=== PATIENT | female | born 1970 | race Caucasian/White ===

== ENCOUNTER → 2020-10-12 12:44 | Outpatient (BNVA) | payer MEDICAID, SELFPAY | PROVIDERS: PCP Family Medicine; Visit Provider Physician Assistant | DX: E66.01 Morbid (severe) obesity due to excess calories (principal); I47.1 Supraventricular tachycardia; E78.5 Hyperlipidemia, unspecified; F32.9 Major depressive disorder, single episode, unspecified; K44.9 Diaphragmatic hernia without obstruction or gangrene; K21.9 Gastro-esophageal reflux disease without esophagitis; I10 Essential (primary) hypertension; E11.40 Type 2 diabetes mellitus with diabetic neuropathy, unspecified; M19.90 Unspecified osteoarthritis, unspecified site; Z86.711 Personal history of pulmonary embolism | CPT/HCPCS: 99202 ==

== ENCOUNTER 2022-03-19 10:28 | Emergency (ER) | payer OTHER, SELFPAY ==
[2022-03-19 11:01] VITALS: BP 177/97; PULSE 87; RESP 19; TEMP 36.6; O2SAT 98; BMI 38.2
[2022-03-19 11:24] LABS: MANUAL DIFF FLAG NO
[2022-03-19 11:25] LABS: Basophils Percent Auto 0.6 % (0-2); Eosinophils Absolute Auto 0.2 X10*3/uL (0.0-0.4); Eosinophils Percent Auto 3.7 % (0-4); Hematocrit 44.6 % (37.0-47.0); Hemoglobin 15.6 g/dl (12.0-16.0); Imm Gran Abs Auto 0.04 X10*3/uL (0.00-0.03); Imm Gran Pct Auto 0.8 % (0.0-0.4); Lymphocytes Absolute Auto 0.9 X10*3/uL (1.2-4.9); Lymphocytes Percent Auto 17.6 % (20-40); Mean Corpuscular Hemoglobin 31.5 pg (27.0-33.0); Mean Corpuscular Volume 89.9 fL (80.0-98.0); Mean Platelet Volume 10.3 fL (9.4-12.3); Monocytes Absolute Auto 0.4 X10*3/uL (0.1-1.2); Monocytes Percent Auto 7.3 % (2-11); Neutrophils Absolute Auto 3.4 x10*3/uL (2.0-8.3); Platelet Count 145 X10*3/uL (160-400); Red Blood Count 4.96 X10*6/uL (4.20-5.50); Red Cell Distribution Width 12.3 % (11.0-16.0); White Blood Count 4.9 X10*3/uL (4.8-10.8)
[2022-03-19 11:34] LABS: INTERNATIONAL NORM RATIO 1.2 (0.9-1.1); Prothrombin Time 13.3 SEC (9.9-13.0)
[2022-03-19 11:48] LABS: Appearance Urine HAZY; Color Urine YELLOW; Glucose Urine UA >=1000 MG/DL (NEG); Leukocyte Esterase Urine NEG (NEG); Nitrite Urine NEG (NEG); PH 5.5 (5.0-8.0); Specific Gravity - Urine 1.025 (1.005-1.025); UACC Culture Trigger NO; Urine Blood TRACE (NEG); Urine Ketones 5 MG/DL (NEG); Urine Protein 1+ MG/DL (NEG-TRACE)
[2022-03-19 11:51] LABS: UPreg QC Valid YES; Urine Pregnancy NEGATIVE (NEGATIVE)
[2022-03-19 11:54] LABS: Alanine Aminotransferase 73 U/L (0-31); Albumin Level 4.1 g/dL (3.5-5.0); Alkaline Phosphatase 124 U/L (39-117); Anion Gap 15 (12-20); Aspartate Amino Transferase 81 U/L (5-31); Bilirubin Direct 0.3 mg/dL (0.0-0.5); Blood Urea Nitrogen 19 mg/dL (9-16); Calcium 9.5 mg/dL (8.4-10.2); Carbon Dioxide 27 mmol/L (22-29); Chloride 97 mmol/L (96-108); Estimated Glomerular Filt Rate > 60; Glucose Random 370 mg/dL (60-115); Lipase 45 U/L (8-78); Potassium 4.8 mmol/L (3.3-5.1); Sodium 134 mmol/L (135-145); Total Protein 7.2 g/dL (6.5-8.0)
[2022-03-19 11:55] LABS: Squamous Epithelial Cell Urine 1+ /LPF
[2022-03-19 11:56] LABS: Bacteria Urine 1+ /LPF
--- NOTE | 2022-03-19 14:46 | ED_ITS ---
HPI - General Adult General Chief complaint: General Medical Stated complaint: head pressure chris horse Time Seen by Provider: 03/19/22 14:46 Source: patient Mode of arrival: ambulatory Limitations: no limitations History of Present Illness HPI narrative: 51 y/o female with history of poorly controlled DM with neuropathy, GERD, SVT, HLD, hiatial hernia, DVT on Eliquis, obesity, osteoarthritis who presents to the ER with multiple complaints. She reports waking up at 4am with a Chris horse in her right calf. She called out of work and almost got fired. She reports daily headaches for the last few weeks, increased stress at home. She is nauseated frequently but does not vomit. She admits to increased depression. She does not take her Lantus but takes her oral DM meds. She does not check her sugar. She states her neuropathy is worsening. She reports new onset of headaches almost daily for the last month. History of migraines. She denies weakness or tingling. She has numbness in her bilateral lower legs and feet. She feels like the skin is burning. She has a new PCP and sees them in May. MD complaint: leg cramps, headaches, lightheadedness Onset (ago): week(s) Location: head and lower extremity Radiation: non-radiation Severity: moderate Quality: burning and aching Pain Consistency: intermittent Relieving factors: none Exacerbating factors: none Associated symptoms: loss of appetite and nausea/vomiting Treatments prior to arrival: none Related Data Home Medications Medication Instructions Recorded Confirmed apixaban 5 mg tablet (Eliquis) 5 mg PO BID 10/12/20 10/12/20 atorvastatin 20 mg tablet 20 mg PO DAILY 10/12/20 10/12/20 cetirizine 10 mg tablet (All Day 10 mg PO DAILY PRN 10/12/20 10/12/20 Allergy (cetirizine)) diclofenac sodium 1 % topical gel 2 g topical QID 10/12/20 10/12/20 (Arthritis Pain (diclofenac)) fluoxetine 40 mg capsule 40 mg PO DAILY 10/12/20 10/12/20 gabapentin 300 mg capsule 300 mg PO DAILY 10/12/20 10/12/20 glipizide 10 mg tablet 10 mg PO DAILY 10/12/20 10/12/20 insulin glargine 100 unit/mL (3 10 unit subcut BID 10/12/20 10/12/20 mL) subcutaneous pen (Lantus Solostar U-100 Insulin) losartan 100 mg tablet 100 mg PO DAILY 10/12/20 10/12/20 magnesium oxide 400 mg PO DAILY 10/12/20 10/12/20 ffwrsfdg-hsn-oorru acid 0.4 1 tab PO DAILY 10/12/20 10/12/20 mg-lycopene 300 mcg-lutein 250 mcg tablet (Centrum Silver) omeprazole 20 mg capsule,delayed 20 mg PO DAILY 10/12/20 10/12/20 release semaglutide (Ozempic) 0.25 mg subcut QWEEK 10/12/20 10/12/20 trazodone 100 mg tablet 100 mg PO DAILY 10/12/20 10/12/20 Previous Rx's Medication Instructions Recorded qpsizyqhvc-lzmoctbljkcvp-lwhsrnyb 1 cap PO Q8H PRN headache #10 caps 03/19/22 50 mg-300 mg-40 mg capsule (Fioricet) metoclopramide HCl 10 mg tablet 10 mg PO Q8H PRN nausea and 03/19/22 (Reglan) vomiting #10 tabs Allergies Allergy/AdvReac Type Severity Reaction Status Date / Time Pt states no food/medication Allergy Unknown Anaphylaxis Uncoded 10/12/20 12:56 a Review of Systems Review of Systems: Constitutional: No Fever, No Chills ENT/Mouth: No sore throat, No Rhinorrhea, No Swallowing Difficulty Eyes: No Eye Pain, No Swelling, No Redness Cardiovascular: No Chest Pain, No SOB, No Orthopnea, No Edema Respiratory: No Cough, No Sputum, No Wheezing, No dyspnea Gastrointestinal: + Nausea, No Vomiting, No Diarrhea, No abdominal Pain, No H ematochezia, No Melena Genitourinary: No Dysuria, No Urinary Frequency, No Hematuria Musculoskeletal: No joint pain, + Myalgias Skin: No Skin Lesions, No rash Neuro: No Weakness, + Numbness, No Dizziness, + Headache Psych: + Anxiety/Panic, + Depression, No SI Heme/Lymph: No Bruising, No Lymphadenopathy Endocrine: No Polyuria, No Polydipsia [facility] Past Medical History Medical History (Updated 03/19/22 @ 16:31 by TYLER Ayon) History of pulmonary embolus (PE) Surgical History (Updated 10/12/20 @ 14:09 by Erin Lazaro PA-C) H/O cardiac radiofrequency ablation Hx of hysterectomy Family History Family History (Updated 10/12/20 @ 13:01 by Swapnil Nguyen Ta) Mother No problems noted. Father No problems noted. Sister No problems noted. Daughter No problems noted. Social History Social History (Updated 10/12/20 @ 13:02 by Swapnil Nguyen Ta) Alcohol intake: current Alcohol intake frequency: does not drink Smoked in Last 30 Days: No Use of substances other than those prescribed or required for medical reasons: No Advance Directives: No Advance Directives Information Provided: No Patient : No Physical Exam ED Vital Signs: Vital Signs - 24 hr 03/19/22 11:01 03/19/22 15:12 Temperature 98 F 98.7 F Pulse Rate 87 89 Respiratory Rate 19 18 Blood Pressure 177/97 H 153/79 H Pulse Oximetry 98 97 Oxygen Delivery Method Room Air Room Air BMI result Body Mass Index 38.2 Appearance: Alert. Oriented X3. No acute distress. Anxious, tearful Eyes: Pupils equal, round and reactive to light. ENT: Pharynx normal. Neck: Normal inspection. Neck supple. CVS: Normal heart rate and rhythm. Pulses normal. Respiratory: No respiratory distress. Breath sounds normal. Abdomen: Obese, Soft and nontender. +BS x4 Skin: Skin warm and dry. Normal skin color. Normal skin turgor. No rashes. Extremities: No lower extremity edema. No calf tenderness. Neuro: Oriented X 3. No motor deficit. No sensory deficit. Course Course Course Narrative: 51 yo female with history of poorly controlled DM, depression, SVT, DVT on eliquis who presents to the ER with multiple chronic complaints, including diarrhea x years, lightheadedness x months in the setting of insulin noncompliance and worsening depression. Glucose 370, no evidence of DKA. She also reported LE cramping today. Lytes are stable. Had long discussion at the bedside about her medical problems. She expressed understanding and acknowledged that these should be followed by her PCP but she does not have an appointment until May. She admits her depression is worsening. Not suicidal. She states I know what I have to do, I just need to do it. She has support of her daughter who she lives with. She was given a list of local therapists and counselors in the area, as her worsening depression is contributing to her worsening chronic medical conditions. She is grateful. At this time patient is stable for d/c home with plan to change her diet, start taking her insulin and follow up with PCP Medical Decision Making Lab Data Result diagrams: 03/19/22 11:17 03/19/22 11:17 Labs: Lab Results 03/19/22 03/19/22 03/19/22 Range/Units 11:17 11:17 11:17 WBC 4.9 (4.8-10.8) X10*3/uL RBC 4.96 (4.20-5.50) X10*6/uL Hgb 15.6 (12.0-16.0) g/dl Hct 44.6 (37.0-47.0) % MCV 89.9 (80.0-98.0) fL MCH 31.5 (27.0-33.0) pg MCHC 35.0 (31.0-35.0) g/dl RDW 12.3 (11.0-16.0) % Plt Count 145 L (160-400) X10*3/uL MPV 10.3 (9.4-12.3) fL Immature Gran % (Auto) 0.8 H (0.0-0.4) % Neut % (Auto) 70.0 (45-73) % Lymph % (Auto) 17.6 L (20-40) % Ross % (Auto) 7.3 (2-11) % Eos % (Auto) 3.7 (0-4) % Baso % (Auto) 0.6 (0-2) % Lymph # (Auto) 0.9 L (1.2-4.9) X10*3/uL Ross # (Auto) 0.4 (0.1-1.2) X10*3/uL Eos # (Auto) 0.2 (0.0-0.4) X10*3/uL Baso # (Auto) 0.0 (0.0-0.2) X10*3/uL Abs Immat Gran (auto) 0.04 H (0.00-0.03) X10*3/uL Absolute Neuts (auto) 3.4 (2.0-8.3) x10*3/uL Absolute Nucleated RBC 0.000 (0.0-0.012) X10*3/uL Nucleated RBC % (auto) 0.0 (0.0-0.2) /100WBC PT 13.3 H (9.9-13.0) SEC INR 1.2 H (0.9-1.1) Sodium 134 L (135-145) mmol/L Potassium 4.8 (3.3-5.1) mmol/L Chloride 97 (96-108) mmol/L Carbon Dioxide 27 (22-29) mmol/L Anion Gap 15 (12-20) BUN 19 H (9-16) mg/dL Creatinine 0.80 (0.5-1.4) mg/dL Estim Creat Clear Calc 95.0 Estimated GFR > 60 POC Glucose (60-115) mg/dL Random Glucose 370 H* (60-115) mg/dL Calcium 9.5 (8.4-10.2) mg/dL Magnesium 1.7 (1.6-2.6) mg/dL Total Bilirubin 1.0 (0.0-1.0) mg/dL Direct Bilirubin 0.3 (0.0-0.5) mg/dL AST 81 H (5-31) U/L ALT 73 H (0-31) U/L Alkaline Phosphatase 124 H (39-117) U/L Total Protein 7.2 (6.5-8.0) g/dL Albumin 4.1 (3.5-5.0) g/dL Lipase 45 (8-78) U/L Urine Color Urine Appearance Urine pH (5.0-8.0) Ur Specific [place] (1.005-1.025) Urine Protein (NEG-TRACE) MG/DL Urine Glucose (UA) (NEG) MG/DL Urine Ketones (NEG) MG/DL Urine Blood (NEG) Urine Nitrite (NEG) Ur Leukocyte Esterase (NEG) Urine RBC (0) /HPF Urine WBC (0-4) /HPF Ur Squamous Epith Cells /LPF Urine Bacteria /LPF Urine Test (NEGATIVE) 03/19/22 03/19/22 03/19/22 Range/Units 11:24 11:24 15:16 WBC (4.8-10.8) X10*3/uL RBC (4.20-5.50) X10*6/uL Hgb (12.0-16.0) g/dl Hct (37.0-47.0) % MCV (80.0-98.0) fL MCH (27.0-33.0) pg MCHC (31.0-35.0) g/dl RDW (11.0-16.0) % Plt Count (160-400) X10*3/uL MPV (9.4-12.3) fL Immature Gran % (Auto) (0.0-0.4) % Neut % (Auto) (45-73) % Lymph % (Auto) (20-40) % Ross % (Auto) (2-11) % Eos % (Auto) (0-4) % Baso % (Auto) (0-2) % Lymph # (Auto) (1.2-4.9) X10*3/uL Ross # (Auto) (0.1-1.2) X10*3/uL Eos # (Auto) (0.0-0.4) X10*3/uL Baso # (Auto) (0.0-0.2) X10*3/uL Abs Immat Gran (auto) (0.00-0.03) X10*3/uL Absolute Neuts (auto) (2.0-8.3) x10*3/uL Absolute Nucleated RBC (0.0-0.012) X10*3/uL Nucleated RBC % (auto) (0.0-0.2) /100WBC PT (9.9-13.0) SEC INR (0.9-1.1) Sodium (135-145) mmol/L Potassium (3.3-5.1) mmol/L Chloride (96-108) mmol/L Carbon Dioxide (22-29) mmol/L Anion Gap (12-20) BUN (9-16) mg/dL Creatinine (0.5-1.4) mg/dL Estim Creat Clear Calc Estimated GFR POC Glucose 359 H* (60-115) mg/dL Random Glucose (60-115) mg/dL Calcium (8.4-10.2) mg/dL Magnesium (1.6-2.6) mg/dL Total Bilirubin (0.0-1.0) mg/dL Direct Bilirubin (0.0-0.5) mg/dL AST (5-31) U/L ALT (0-31) U/L Alkaline Phosphatase (39-117) U/L Total Protein (6.5-8.0) g/dL Albumin (3.5-5.0) g/dL Lipase (8-78) U/L Urine Color YELLOW Urine Appearance HAZY Urine pH 5.5 (5.0-8.0) Ur Specific [place] 1.025 (1.005-1.025) Urine Protein 1+ H (NEG-TRACE) MG/DL Urine Glucose (UA) >=1000 H (NEG) MG/DL Urine Ketones 5 (NEG) MG/DL Urine Blood TRACE (NEG) Urine Nitrite NEG (NEG) Ur Leukocyte Esterase NEG (NEG) Urine RBC 1-4 (0) /HPF Urine WBC 1-4 (0-4) /HPF Ur Squamous Epith Cells 1+ /LPF Urine Bacteria 1+ /LPF Urine Test NEGATIVE (NEGATIVE) 03/19/22 Range/Units 16:31 WBC (4.8-10.8) X10*3/uL RBC (4.20-5.50) X10*6/uL Hgb (12.0-16.0) g/dl Hct (37.0-47.0) % MCV (80.0-98.0) fL MCH (27.0-33.0) pg MCHC (31.0-35.0) g/dl RDW (11.0-16.0) % Plt Count (160-400) X10*3/uL MPV (9.4-12.3) fL Immature Gran % (Auto) (0.0-0.4) % Neut % (Auto) (45-73) % Lymph % (Auto) (20-40) % Ross % (Auto) (2-11) % Eos % (Auto) (0-4) % Baso % (Auto) (0-2) % Lymph # (Auto) (1.2-4.9) X10*3/uL Ross # (Auto) (0.1-1.2) X10*3/uL Eos # (Auto) (0.0-0.4) X10*3/uL Baso # (Auto) (0.0-0.2) X10*3/uL Abs Immat Gran (auto) (0.00-0.03) X10*3/uL Absolute Neuts (auto) (2.0-8.3) x10*3/uL Absolute Nucleated RBC (0.0-0.012) X10*3/uL Nucleated RBC % (auto) (0.0-0.2) /100WBC PT (9.9-13.0) SEC INR (0.9-1.1) Sodium (135-145) mmol/L Potassium (3.3-5.1) mmol/L Chloride (96-108) mmol/L Carbon Dioxide (22-29) mmol/L Anion Gap (12-20) BUN (9-16) mg/dL Creatinine (0.5-1.4) mg/dL Estim Creat Clear Calc Estimated GFR POC Glucose 288 H (60-115) mg/dL Random Glucose (60-115) mg/dL Calcium (8.4-10.2) mg/dL Magnesium (1.6-2.6) mg/dL Total Bilirubin (0.0-1.0) mg/dL Direct Bilirubin (0.0-0.5) mg/dL AST (5-31) U/L ALT (0-31) U/L Alkaline Phosphatase (39-117) U/L Total Protein (6.5-8.0) g/dL Albumin (3.5-5.0) g/dL Lipase (8-78) U/L Urine Color Urine Appearance Urine pH (5.0-8.0) Ur Specific [place] (1.005-1.025) Urine Protein (NEG-TRACE) MG/DL Urine Glucose (UA) (NEG) MG/DL Urine Ketones (NEG) MG/DL Urine Blood (NEG) Urine Nitrite (NEG) Ur Leukocyte Esterase (NEG) Urine RBC (0) /HPF Urine WBC (0-4) /HPF Ur Squamous Epith Cells /LPF Urine Bacteria /LPF Urine Test (NEGATIVE) Critical Care Time Critical Care Time Critical Care Time: No Discharge Plan Discharge Clinical Impression: Depression, Diabetes mellitus, Generalized headaches Patient Disposition: Home, Self-Care Instructions: General Headache (ED), Diabetes and Nutrition (ED) Additional Instructions: It is important that you get your diabetes under better control. Monitor your carb and sugar intake Start your Lantus as directed and check your sugars 3-4 times per day, before meals and at bedtime. Take the prescribed medication as needed for headaches. Make sure you are drinking plenty of water Take the prescribed medication as needed for nausea. As your sugars improve your nausea and headaches should improve. Follow up with your PCP. Follow up with a therapist as soon as sathya mathew Prescriptions: New kpuupwghxo-trgrckvyfrrqz-avmt [Fioricet] 50-300-40 mg capsule 1 cap PO Q8H PRN (Reason: headache) Qty: 10 0RF metoclopramide HCl [Reglan] 10 mg tablet 10 mg PO Q8H PRN (Reason: nausea and vomiting) Qty: 10 0RF No Action atorvastatin 20 mg tablet 20 mg PO DAILY Centrum Silver 0.4-300-250 mg-mcg-mcg tablet 1 tab PO DAILY cetirizine [All Day Allergy (cetirizine)] 10 mg tablet 10 mg PO DAILY PRN diclofenac sodium [Arthritis Pain (diclofenac)] 1 % gel 2 g topical QID Rx Instructions: apply to single elbow, wrist or hand; for hand includes palm/fingers/back of hand Eliquis 5 mg tablet 5 mg PO BID fluoxetine 40 mg capsule 40 mg PO DAILY gabapentin 300 mg capsule 300 mg PO DAILY glipizide 10 mg tablet 10 mg PO DAILY Lantus Solostar U-100 Insulin 100 unit/mL (3 mL) insulin pen 10 unit subcut BID losartan 100 mg tablet 100 mg PO DAILY magnesium oxide 400 mg magnesium capsule 400 mg PO DAILY omeprazole 20 mg capsule,delayed release(DR/EC) 20 mg PO DAILY Ozempic 0.25 mg or 0.5 mg(2 mg/1.5 mL) pen injector 0.25 mg subcut QWEEK trazodone 100 mg tablet 100 mg PO DAILY Stand Alone Forms: Work/School Release
[2022-03-19 15:12] VITALS: BP 153/79; PULSE 89; RESP 18; TEMP 37.1; O2SAT 97
[2022-03-19 15:20] LABS: Glucose, Whole Blood 359 mg/dL (60-115)
[2022-03-19] MEDS: Butalb/Acetamin/Caff 50/325/40 TABLET 1 TAB PO (15:21)
[2022-03-19] MEDS: Insulin Lispro 100 UNIT/ML 3 ML VIAL 10 UNIT SUBCUT (15:21)
[2022-03-19 15:51] LABS: Magnesium 1.7 mg/dL (1.6-2.6)
[2022-03-19 16:38] LABS: Glucose, Whole Blood 288 mg/dL (60-115)
== END 2022-03-19 16:58 | disposition home or self-care (01) ==
PROVIDERS: Physician Assistant; Emergency Provider Emergency Medicine Emergency Medical Services; PCP Internal Medicine
DX: G44.89 Other headache syndrome (principal); F32.A Depression, unspecified; E11.40 Type 2 diabetes mellitus with diabetic neuropathy, unspecified; Z86.718 Personal history of other venous thrombosis and embolism; Z79.01 Long term (current) use of anticoagulants; Z91.14 Patient's other noncompliance with medication regimen
CPT/HCPCS: 36415; 80048; 80076; 81001; 81025; 82947; 83690; 83735; 85025; 85610; 99283; 99284

== ENCOUNTER 2022-05-15 15:07 | Inpatient (IN) | payer OTHER, SELFPAY ==
[2022-05-15] VITALS (8 sets, daily range): BP systolic 83–130; BP diastolic 37–69; PULSE 76–93; RESP 12–21; TEMP 36.6; O2SAT 92–96; BMI 34.7
--- NOTE | 2022-05-15 | ECG_ITS ---
Test Reason : REPEAT Blood Pressure : / mmHG Vent. Rate : 084 BPM Atrial Rate : 084 BPM P-R Int : 166 ms QRS Dur : 092 ms QT Int : 450 ms P-R-T Axes : 061 -24 015 degrees QTc Int : 531 ms Normal sinus rhythm Prolonged QT Abnormal ECG When compared with ECG of 15-MAY-2022 15:40, Borderline criteria for Anterior infarct are no longer Present Borderline criteria for Anterolateral infarct are no longer Present Referred By: Basim Jensen Electronically Signed By:EDWIN ALEXANDER
--- NOTE | 2022-05-15 15:31 | ECG_ITS ---
Test Reason : chest pain Blood Pressure : / mmHG Vent. Rate : 077 BPM Atrial Rate : 077 BPM P-R Int : 160 ms QRS Dur : 084 ms QT Int : 510 ms P-R-T Axes : 048 -22 035 degrees QTc Int : 577 ms Normal sinus rhythm Minimal voltage criteria for LVH, may be normal variant ( R in aVL ) Possible Anterolateral infarct , age undetermined Prolonged QT Abnormal ECG No previous ECGs available Referred By: Basim Jensen Electronically Signed By:EDWIN ALEXANDER
--- NOTE | 2022-05-15 15:40 | ED_ITS ---
HPI - Overdose General Chief Complaint: Overdose Stated Complaint: OVERDOSE WITH PILLS Time Seen by Provider: 05/15/22 15:30 Source: patient Mode of arrival: EMS Limitations: no limitations and altered mental status History of Present Illness HPI Narrative: this is a 51 years old of female brought in by the ambulance after taking a on multi-drug overdose, unknown how many pills, she has access to trazodone, meto prolol, acetaminophen melatonin. Apparently she had a fight with her mother she left the house she was found stumbling in the street police was called and then an ambulance was called, she arrived lethargic but arousable MD complaint: intentional overdose Onset (ago): hour(s) (1) Intent: unknown Associated symptoms: depression Related Data Home Medications Medication Instructions Recorded Confirmed apixaban 5 mg tablet (Eliquis) 5 mg PO BID 10/12/20 05/15/22 cetirizine 10 mg tablet (All Day 10 mg PO DAILY PRN Allergy Symptoms 10/12/20 05/15/22 Allergy (cetirizine)) insulin glargine 100 unit/mL (3 52 unit subcut DAILY 10/12/20 05/15/22 mL) subcutaneous pen (Lantus Solostar U-100 Insulin) dulaglutide 0.75 mg/0.5 mL 0.5 ml subcut QWEEK 05/15/22 05/15/22 subcutaneous pen injector (Trulicity) gabapentin 300 mg capsule 2 cap PO TID 05/15/22 05/15/22 glipizide 5 mg tablet, extended 1 tab PO DAILY 05/15/22 05/15/22 release 24 hr hydroxyzine HCl 50 mg tablet 1 tab PO TID PRN Anxiety 05/15/22 05/15/22 insulin lispro 100 unit/mL 5 unit subcut DAILY@1700 05/15/22 05/15/22 subcutaneous solution metoprolol tartrate 50 mg tablet 1 tab PO BID 05/15/22 05/15/22 trazodone 100 mg tablet 2 tab PO QPM 05/15/22 05/15/22 Allergies Allergy/AdvReac Type Severity Reaction Status Date / Time Pt states no food/medication Allergy Unknown Anaphylaxis Uncoded 10/12/20 12:56 a Review of Systems Review of Systems: Yes Unobtainable due to mental condition PMFSH Past Medical History Source: unable to obtain Medical History History of pulmonary embolus (PE) Surgical History H/O cardiac radiofrequency ablation Hx of hysterectomy Family History Family History Mother No problems noted. Father No problems noted. Sister No problems noted. Daughter No problems noted. Social History Social History Alcohol intake: unknown Patient Tobacco Use Status: Tobacco use Unknown Use of substances other than those prescribed or required for medical reasons: Unknown Advance Directives: No Advance Directives Information Provided: No Patient : No Physical Exam Vital Signs: Vital Signs: Last Vital Signs Temp 98 F 05/15/22 15:45 Pulse 80 05/15/22 19:33 Resp 12 05/15/22 19:33 BP 130/69 05/15/22 19:33 Pulse Ox 96 05/15/22 19:33 O2 Del Method 05/15/22 19:33 Oxygen Flow Rate 6 05/15/22 15:45 BMI result Body Mass Index 34.7 Const: Other: lethargic but arousable, she has a gag reflex General: well developed Nutritional Appearance: well nourished Limitations: altered mental status HEENT: Head: Yes normal to inspection General nose exam: Normal external nose present Face and sinus: Yes normal facial exam Mouth: Normal oral and palatal mucosa present Neck: Neck: Yes full ROM Thyroid: Thyroid normal Chest: Chest palpation & inspection: normal inspection of the chest Resp: Effort & Inspection: normal respiratory effort Auscultation: clear to auscultation bilaterally Cardio: Jugular venous distension: no JVD Rate: regular rate GI: Inspection: Yes normal to inspection Palpation (GI): Soft to palpation, not firm, nontender and no guarding Skin: General skin exam: no rashes or lesions noted, elasticity normal and turgor normal Lesions: no lesions Rashes: no rashes Neuro: Other: she is obtunded but arousable Course Reevaluation(s) Reevaluation #1: Awake and alert at this time maintaining airway well normotensive Reevaluation #2: still lethargic but easily arousable, it is unclear many pills she took ;she has access to Tylenol,seroquel,b-blochers,neurontin, apixabam it is very pricila sonable to admit the pt for OBS, she is not medically cleared,she was placed on section 12 by me. I spoke with hospitalist Dr Andrade Poison control called by RN Continue to maintain good airway and good BP will continue cardiac monitoring and supportive care MDM - Overdose Lab Data Result diagrams: 05/15/22 15:39 05/15/22 15:39 Labs: Lab Results 05/15/22 05/15/22 05/15/22 Range/Units 15:31 15:39 15:39 WBC 3.8 L (4.8-10.8) X10*3/uL RBC 4.81 (4.20-5.50) X10*6/uL Hgb 15.1 (12.0-16.0) g/dl Hct 42.8 (37.0-47.0) % MCV 89.0 (80.0-98.0) fL MCH 31.4 (27.0-33.0) pg MCHC 35.3 H (31.0-35.0) g/dl RDW 12.4 (11.0-16.0) % Plt Count 109 L (160-400) X10*3/uL MPV 10.8 (9.4-12.3) fL Immature Gran % (Auto) 0.8 H (0.0-0.4) % Neut % (Auto) 59.8 (45-73) % Lymph % (Auto) 27.2 (20-40) % [place] % (Auto) 8.6 (2-11) % Eos % (Auto) 2.6 (0-4) % Baso % (Auto) 1.0 (0-2) % Lymph # (Auto) 1.0 L (1.2-4.9) X10*3/uL [place] # (Auto) 0.3 (0.1-1.2) X10*3/uL Eos # (Auto) 0.1 (0.0-0.4) X10*3/uL Baso # (Auto) 0.0 (0.0-0.2) X10*3/uL Abs Immat Gran (auto) 0.03 (0.00-0.03) X10*3/uL Absolute Neuts (auto) 2.3 (2.0-8.3) x10*3/uL Absolute Nucleated RBC 0.000 (0.0-0.012) X10*3/uL Nucleated RBC % (auto) 0.0 (0.0-0.2) /100WBC APTT (26.0-36.4) SEC VBG pH (7.32-7.43) VBG pCO2 mmHg VBG pO2 mmHg VBG HCO3 (22-26) mmol/L VBG O2 Saturation % VBG Base Excess mmol/L Sodium 135 (135-145) mmol/L Potassium 4.6 (3.3-5.1) mmol/L Chloride 100 (96-108) mmol/L Carbon Dioxide 19 L (22-29) mmol/L Anion Gap 21 H (12-20) BUN 20 H (9-16) mg/dL Creatinine 1.13 (0.5-1.4) mg/dL Estim Creat Clear Calc 73.3 Estimated GFR 51 POC Glucose 380 H* (60-115) mg/dL Random Glucose 399 H* (60-115) mg/dL Calcium 8.5 D (8.4-10.2) mg/dL Magnesium 1.6 (1.6-2.6) mg/dL Total Bilirubin 0.7 (0.0-1.0) mg/dL AST 92 H (5-31) U/L ALT 71 H (0-31) U/L Alkaline Phosphatase 121 H (39-117) U/L Troponin I High Sens (<3.5-17.0) ng/L B-Natriuretic Peptide (<100) pg/mL Total Protein 7.2 (6.5-8.0) g/dL Albumin 3.8 (3.5-5.0) g/dL Salicylates < 5.0 L (15-30) mg/dL Urine Opiates Screen (Not Detect) Urine Fentanyl Screen (Not Detect) Acetaminophen < 1 (<30) mcg/mL Ur Barbiturates Screen (Not Detect) Ur Phencyclidine Scrn (Not Detect) Ur Amphetamines Screen (Not Detect) U Benzodiazepines Scrn (Not Detect) Urine Cocaine Screen (Not Detect) U Marijuana (THC) Screen (Not Detect) Ethyl Alcohol mg/dL 05/15/22 05/15/22 05/15/22 Range/Units 15:39 15:42 15:47 WBC (4.8-10.8) X10*3/uL RBC (4.20-5.50) X10*6/uL Hgb (12.0-16.0) g/dl Hct (37.0-47.0) % MCV (80.0-98.0) fL MCH (27.0-33.0) pg MCHC (31.0-35.0) g/dl RDW (11.0-16.0) % Plt Count (160-400) X10*3/uL MPV (9.4-12.3) fL Immature Gran % (Auto) (0.0-0.4) % Neut % (Auto) (45-73) % Lymph % (Auto) (20-40) % [place] % (Auto) (2-11) % Eos % (Auto) (0-4) % Baso % (Auto) (0-2) % Lymph # (Auto) (1.2-4.9) X10*3/uL [place] # (Auto) (0.1-1.2) X10*3/uL Eos # (Auto) (0.0-0.4) X10*3/uL Baso # (Auto) (0.0-0.2) X10*3/uL Abs Immat Gran (auto) (0.00-0.03) X10*3/uL Absolute Neuts (auto) (2.0-8.3) x10*3/uL Absolute Nucleated RBC (0.0-0.012) X10*3/uL Nucleated RBC % (auto) (0.0-0.2) /100WBC APTT 34.9 (26.0-36.4) SEC VBG pH 7.37 (7.32-7.43) VBG pCO2 37 mmHg VBG pO2 83 mmHg VBG HCO3 21 L (22-26) mmol/L VBG O2 Saturation 95.0 % VBG Base Excess -2.7 mmol/L Sodium (135-145) mmol/L Potassium (3.3-5.1) mmol/L Chloride (96-108) mmol/L Carbon Dioxide (22-29) mmol/L Anion Gap (12-20) BUN (9-16) mg/dL Creatinine (0.5-1.4) mg/dL Estim Creat Clear Calc Estimated GFR POC Glucose (60-115) mg/dL Random Glucose (60-115) mg/dL Calcium (8.4-10.2) mg/dL Magnesium (1.6-2.6) mg/dL Total Bilirubin (0.0-1.0) mg/dL AST (5-31) U/L ALT (0-31) U/L Alkaline Phosphatase (39-117) U/L Troponin I High Sens < 3.5 (<3.5-17.0) ng/L B-Natriuretic Peptide (<100) pg/mL Total Protein (6.5-8.0) g/dL Albumin (3.5-5.0) g/dL Salicylates (15-30) mg/dL Urine Opiates Screen (Not Detect) Urine Fentanyl Screen (Not Detect) Acetaminophen (<30) mcg/mL Ur Barbiturates Screen (Not Detect) Ur Phencyclidine Scrn (Not Detect) Ur Amphetamines Screen (Not Detect) U Benzodiazepines Scrn (Not Detect) Urine Cocaine Screen (Not Detect) U Marijuana (THC) Screen (Not Detect) Ethyl Alcohol mg/dL 05/15/22 05/15/22 05/15/22 Range/Units 17:06 17:11 18:17 WBC (4.8-10.8) X10*3/uL RBC (4.20-5.50) X10*6/uL Hgb (12.0-16.0) g/dl Hct (37.0-47.0) % MCV (80.0-98.0) fL MCH (27.0-33.0) pg MCHC (31.0-35.0) g/dl RDW (11.0-16.0) % Plt Count (160-400) X10*3/uL MPV (9.4-12.3) fL Immature Gran % (Auto) (0.0-0.4) % Neut % (Auto) (45-73) % Lymph % (Auto) (20-40) % [place] % (Auto) (2-11) % Eos % (Auto) (0-4) % Baso % (Auto) (0-2) % Lymph # (Auto) (1.2-4.9) X10*3/uL [place] # (Auto) (0.1-1.2) X10*3/uL Eos # (Auto) (0.0-0.4) X10*3/uL Baso # (Auto) (0.0-0.2) X10*3/uL Abs Immat Gran (auto) (0.00-0.03) X10*3/uL Absolute Neuts (auto) (2.0-8.3) x10*3/uL Absolute Nucleated RBC (0.0-0.012) X10*3/uL Nucleated RBC % (auto) (0.0-0.2) /100WBC APTT (26.0-36.4) SEC VBG pH (7.32-7.43) VBG pCO2 mmHg VBG pO2 mmHg VBG HCO3 (22-26) mmol/L VBG O2 Saturation % VBG Base Excess mmol/L Sodium (135-145) mmol/L Potassium (3.3-5.1) mmol/L Chloride (96-108) mmol/L Carbon Dioxide (22-29) mmol/L Anion Gap (12-20) BUN (9-16) mg/dL Creatinine (0.5-1.4) mg/dL Estim Creat Clear Calc Estimated GFR POC Glucose 407 H* (60-115) mg/dL Random Glucose (60-115) mg/dL Calcium (8.4-10.2) mg/dL Magnesium (1.6-2.6) mg/dL Total Bilirubin (0.0-1.0) mg/dL AST (5-31) U/L ALT (0-31) U/L Alkaline Phosphatase (39-117) U/L Troponin I High Sens (<3.5-17.0) ng/L B-Natriuretic Peptide 16 (<100) pg/mL Total Protein (6.5-8.0) g/dL Albumin (3.5-5.0) g/dL Salicylates (15-30) mg/dL Urine Opiates Screen Not Detected (Not Detect) Urine Fentanyl Screen POSITIVE H (Not Detect) Acetaminophen (<30) mcg/mL Ur Barbiturates Screen Not Detected (Not Detect) Ur Phencyclidine Scrn Not Detected (Not Detect) Ur Amphetamines Screen POSITIVE H (Not Detect) U Benzodiazepines Scrn Not Detected (Not Detect) Urine Cocaine Screen Not Detected (Not Detect) U Marijuana (THC) Screen Not Detected (Not Detect) Ethyl Alcohol mg/dL 05/15/22 05/15/22 05/15/22 Range/Units 18:17 19:52 19:52 WBC (4.8-10.8) X10*3/uL RBC (4.20-5.50) X10*6/uL Hgb (12.0-16.0) g/dl Hct (37.0-47.0) % MCV (80.0-98.0) fL MCH (27.0-33.0) pg MCHC (31.0-35.0) g/dl RDW (11.0-16.0) % Plt Count (160-400) X10*3/uL MPV (9.4-12.3) fL Immature Gran % (Auto) (0.0-0.4) % Neut % (Auto) (45-73) % Lymph % (Auto) (20-40) % [place] % (Auto) (2-11) % Eos % (Auto) (0-4) % Baso % (Auto) (0-2) % Lymph # (Auto) (1.2-4.9) X10*3/uL [place] # (Auto) (0.1-1.2) X10*3/uL Eos # (Auto) (0.0-0.4) X10*3/uL Baso # (Auto) (0.0-0.2) X10*3/uL Abs Immat Gran (auto) (0.00-0.03) X10*3/uL Absolute Neuts (auto) (2.0-8.3) x10*3/uL Absolute Nucleated RBC (0.0-0.012) X10*3/uL Nucleated RBC % (auto) (0.0-0.2) /100WBC APTT (26.0-36.4) SEC VBG pH (7.32-7.43) VBG pCO2 mmHg VBG pO2 mmHg VBG HCO3 (22-26) mmol/L VBG O2 Saturation % VBG Base Excess mmol/L Sodium (135-145) mmol/L Potassium (3.3-5.1) mmol/L Chloride (96-108) mmol/L Carbon Dioxide (22-29) mmol/L Anion Gap (12-20) BUN (9-16) mg/dL Creatinine (0.5-1.4) mg/dL Estim Creat Clear Calc Estimated GFR POC Glucose (60-115) mg/dL Random Glucose (60-115) mg/dL Calcium (8.4-10.2) mg/dL Magnesium (1.6-2.6) mg/dL Total Bilirubin (0.0-1.0) mg/dL AST (5-31) U/L ALT (0-31) U/L Alkaline Phosphatase (39-117) U/L Troponin I High Sens (<3.5-17.0) ng/L B-Natriuretic Peptide (<100) pg/mL Total Protein (6.5-8.0) g/dL Albumin (3.5-5.0) g/dL Salicylates (15-30) mg/dL Urine Opiates Screen (Not Detect) Urine Fentanyl Screen (Not Detect) Acetaminophen < 1 Cancelled (<30) mcg/mL Ur Barbiturates Screen (Not Detect) Ur Phencyclidine Scrn (Not Detect) Ur Amphetamines Screen (Not Detect) U Benzodiazepines Scrn (Not Detect) Urine Cocaine Screen (Not Detect) U Marijuana (THC) Screen (Not Detect) Ethyl Alcohol < 10 mg/dL ECG Data Pacemaker model: normal sinus rhythm rate [address]-T changes normal intervals Critical Care Time Critical Care Time Critical Care Time: Yes Total Critical Care Time: 60 Attestation: multidrug overdose speaking with EMS/Hospitalist/taking care of the pt Discharge Plan Discharge Clinical Impression: Overdose, Deliberate medication overdose
[2022-05-15 15:44] LABS: MANUAL DIFF FLAG NO
[2022-05-15 15:46] LABS: Eosinophils Absolute Auto 0.1 X10*3/uL (0.0-0.4); Eosinophils Percent Auto 2.6 % (0-4); Hematocrit 42.8 % (37.0-47.0); Hemoglobin 15.1 g/dl (12.0-16.0); Imm Gran Abs Auto 0.03 X10*3/uL (0.00-0.03); Imm Gran Pct Auto 0.8 % (0.0-0.4); Lymphocytes Percent Auto 27.2 % (20-40); Mean Corpuscular HGB Conc 35.3 g/dl (31.0-35.0); Mean Corpuscular Hemoglobin 31.4 pg (27.0-33.0); Mean Platelet Volume 10.8 fL (9.4-12.3); Monocytes Absolute Auto 0.3 X10*3/uL (0.1-1.2); Monocytes Percent Auto 8.6 % (2-11); Neutrophils Absolute Auto 2.3 x10*3/uL (2.0-8.3); Neutrophils Percent Auto 59.8 % (45-73); Platelet Count 109 X10*3/uL (160-400); Red Blood Count 4.81 X10*6/uL (4.20-5.50); Red Cell Distribution Width 12.4 % (11.0-16.0); White Blood Count 3.8 X10*3/uL (4.8-10.8)
[2022-05-15 15:52] LABS: VBG Base Excess -2.7 mmol/L; VBG HCO3 21 mmol/L (22-26); VBG pCO2 37 mmHg; VBG pH 7.37 (7.32-7.43); VBG pO2 83 mmHg
[2022-05-15 15:53] LABS: Venous Blood Gas Refer to POC result
[2022-05-15 15:57] LABS: Partial Thromboplastin Time 34.9 SEC (26.0-36.4)
[2022-05-15 16:09] LABS: Troponin-I High Sensitivity < 3.5 ng/L (<3.5-17.0)
[2022-05-15 16:09] LABS: Acetaminophen LAB < 1 mcg/mL (<30); Salicylate < 5.0 mg/dL (15-30)
[2022-05-15 16:11] LABS: Glucose, Whole Blood 380 mg/dL (60-115)
[2022-05-15 16:11] LABS: Alanine Aminotransferase 71 U/L (0-31); Albumin Level 3.8 g/dL (3.5-5.0); Alkaline Phosphatase 121 U/L (39-117); Anion Gap 21 (12-20); Aspartate Amino Transferase 92 U/L (5-31); Bilirubin Total 0.7 mg/dL (0.0-1.0); Blood Urea Nitrogen 20 mg/dL (9-16); Calcium 8.5 mg/dL (8.4-10.2); Carbon Dioxide 19 mmol/L (22-29); Chloride 100 mmol/L (96-108); Creatinine Clr Calc Pharmacy 73.3; Estimated Glomerular Filt Rate 51; Glucose Random 399 mg/dL (60-115); Potassium 4.6 mmol/L (3.3-5.1); Sodium 135 mmol/L (135-145); Total Protein 7.2 g/dL (6.5-8.0)
[2022-05-15] MEDS: 0.9 % Sodium Chloride 1,000 ML 999 ML IVCONT (16:47)
--- NOTE | 2022-05-15 16:58 | PC.NURSE ---
pt lethargic, did vomit once following arriving to the ER, no pills noticed in [facility]. pt reluctant to answer nursing questions. was able to report that she took melatonin and trazodone
[2022-05-15] MEDS: Insulin Lispro 100 UNIT/ML 3 ML VIAL SUBCUT ×2 (17:12→21:29)
--- NOTE | 2022-05-15 17:15 | PC.NURSE ---
call to poison control [phone]
--- NOTE | 2022-05-15 17:36 | PC.NURSE ---
per poison control - monitor pt blood sugar, draw BNP and ethanol level. Q2 hr EKG for another 4 hours (1740 and 1940 monitor QTC) will call back with further update
[2022-05-15 17:45] LABS: Amphetamine Screen Urine POSITIVE (Not Detect); Barbiturates, Urine Not Detected (Not Detect); Benzodiazepines Screen Urine Not Detected (Not Detect); Cannabinoid Screen Urine Not Detected (Not Detect); Cocaine Screen Urine Not Detected (Not Detect); Fentanyl, urine POSITIVE (Not Detect); Opiate Screen Urine Not Detected (Not Detect); Phencyclidine Screen Urine Not Detected (Not Detect)
--- NOTE | 2022-05-15 17:45 | MHC.CARE ---
Call received by aJmal Orosco from [facility] co response. He reports that pt took unknown amount of a new bottle of gabapentin. This report conflicts with others on what pt took. Information is communicated to both Azul Franklin RN and Dr. Jensen. Pt not yet medically cleared for assessment.
[2022-05-15 18:17] LABS: Glucose, Whole Blood 407 mg/dL (60-115)
[2022-05-15 18:34] LABS: Ethanol < 10 mg/dL
[2022-05-15 18:42] LABS: B Type Natriuretic Peptide 16 pg/mL (<100)
--- NOTE | 2022-05-15 18:43 | PC.NURSE ---
Nereyda (daughter) ok to give information to per pt
--- NOTE | 2022-05-15 19:32 | PC.NURSE ---
report received from Azul GARDNER - vial signs updated. pt cleaned up, sheets changed. resting comfortably, no current complains. A&Ox4. on lunchroom monitor, call yuan within reach. will continue to monitor.
--- NOTE | 2022-05-15 19:40 | ECG_ITS ---
Test Reason : overdose Blood Pressure : / mmHG Vent. Rate : 081 BPM Atrial Rate : 081 BPM P-R Int : 158 ms QRS Dur : 090 ms QT Int : 444 ms P-R-T Axes : 060 -23 016 degrees QTc Int : 515 ms Normal sinus rhythm Low voltage QRS Prolonged QT Abnormal ECG When compared with ECG of 15-MAY-2022 18:04, No significant change was found Referred By: Basim Jensen Electronically Signed By:EDWIN ALEXANDER
--- NOTE | 2022-05-15 20:39 | P.HPHOSP_ITS ---
History of Present Illness Date of Service: 05/15/22 Chief Complaint: suicidal attempt 51-year-old female with past medical history of GERD, HTN, osteoarthritis, diabetes, diabetic neuropathy, depression, HLD, history of SVT, presents to the hospital after ingesting various pills after of having a fight with her wilner pennington. Patient reports that she did not want to hurt herself and she took them after having a fight with her daughter. She took trazodone, hydrocortisone, and melatonin. She reports that she took more than 10 pills. At this time patient denies any suicidal ideation. She denies any headache or change in vision, no chest pain, shortness of breath, no abdominal pain nausea or vomiting, no diarrhea constipation, no urinary symptoms and no lower extremity edema. On arrival to the ED patient hemodynamically stable with hypotension with blood pressure in the 80s over 30s, patient resuscitated with IV fluids with normalization of her blood pressure Labs are significant for WBC count of 3.8, pH of 7.37, bicarb of 21, osmolality of 304, lactic acid of 3.0, magnesium of 1.6, AST of 92, ALT of 71, UA positive for leukocyte Estrace and WBC, UDS positive for fentanyl, amphetamines, estimate of in an salicylate acid negative Initial EKG on arrival showed a QTC of 531, 2nd EKG showed a QTC of 577, patient received magnesium, and will be admitted for further management and evaluation. Review of Systems Review of Systems: Yes all other systems are reviewed and are negative [facility] Medical History (Updated 05/16/22 @ 06:00 by Alicia Andrade MD) Depression Diabetes mellitus Diabetic neuropathy GERD (gastroesophageal reflux disease) Hiatal hernia History of pulmonary embolus (PE) HTN, goal below 130/80 Hyperlipidemia Morbid obesity Osteoarthritis SVT (supraventricular tachycardia) Family History Mother No problems noted. Father No problems noted. Sister No problems noted. Daughter No problems noted. Surgical History H/O cardiac radiofrequency ablation Hx of hysterectomy Social History Alcohol intake: unknown Patient Tobacco Use Status: Tobacco use Unknown Use of substances other than those prescribed or required for medical reasons: Unknown Advance Directives: No Advance Directives Information Provided: No Patient : No Meds Allergies Allergy/AdvReac Type Severity Reaction Status Date / Time Pt states no food/medication Allergy Unknown Anaphylaxis Uncoded 10/12/20 12:56 a Home Medications Medication Instructions Recorded Confirmed Last Taken Type apixaban 5 mg tablet (Eliquis) 5 mg PO BID 10/12/20 05/15/22 Unknown History cetirizine 10 mg tablet (All Day 10 mg PO DAILY PRN Allergy Symptoms 10/12/20 05/15/22 Unknown History Allergy (cetirizine)) insulin glargine 100 unit/mL (3 52 unit subcut DAILY 10/12/20 05/15/22 Unknown History mL) subcutaneous pen (Lantus Solostar U-100 Insulin) dulaglutide 0.75 mg/0.5 mL 0.5 ml subcut QWEEK 05/15/22 05/15/22 Unknown History subcutaneous pen injector (Trulicity) gabapentin 300 mg capsule 2 cap PO TID 05/15/22 05/15/22 Unknown History glipizide 5 mg tablet, extended 1 tab PO DAILY 05/15/22 05/15/22 Unknown History release 24 hr hydroxyzine HCl 50 mg tablet 1 tab PO TID PRN Anxiety 05/15/22 05/15/22 Unknown History insulin lispro 100 unit/mL 5 unit subcut DAILY@1700 05/15/22 05/15/22 Unknown History subcutaneous solution metoprolol tartrate 50 mg tablet 1 tab PO BID 05/15/22 05/15/22 Unknown History trazodone 100 mg tablet 2 tab PO QPM 05/15/22 05/15/22 Unknown History Physical Exam Vital Signs and Narrative: Vital Signs: Last Vital Signs Temp 98 F 05/15/22 15:45 Pulse 80 05/15/22 19:33 Resp 12 05/15/22 19:33 BP 130/69 05/15/22 19:33 Pulse Ox 96 05/15/22 19:33 O2 Del Method 05/15/22 19:33 Oxygen Flow Rate 6 05/15/22 15:45 BMI result Body Mass Index 34.7 Const: Other: Slightly somnolent but arousable General: cooperative and no acute distress Orientation/consciousness: patient oriented x3 Eyes: General: appearance normal, both eyes and all related structures Resp: Effort & Inspection: normal respiratory effort Auscultation: clear to auscultation bilaterally Cardio: Rate: regular rate Rhythm: regular rhythm GI: Palpation (GI): Soft to palpation Auscultation: normal bowel sounds Skin: General skin exam: no rashes or lesions noted Neuro: General: patient oriented x3 Cognition (Neuro): normal cognition Extrem: General: Yes normal to inspection and Yes no pedal edema Results Labs CBC and Chem 7: 05/15/22 15:39 05/15/22 15:39 Labs: Laboratory Results - last 24 hr 05/15/22 05/15/22 05/15/22 15:31 15:39 15:39 MCV 89.0 MCH 31.4 MCHC 35.3 H RDW 12.4 Plt Count 109 L MPV 10.8 Immature Gran % (Auto) 0.8 H Neut % (Auto) 59.8 Lymph % (Auto) 27.2 [place] % (Auto) 8.6 Eos % (Auto) 2.6 Baso % (Auto) 1.0 Lymph # (Auto) 1.0 L [place] # (Auto) 0.3 Eos # (Auto) 0.1 Baso # (Auto) 0.0 Abs Immat Gran (auto) 0.03 Absolute Neuts (auto) 2.3 Absolute Nucleated RBC 0.000 Nucleated RBC % (auto) 0.0 APTT VBG pH VBG pCO2 VBG pO2 VBG HCO3 VBG O2 Saturation VBG Base Excess Anion Gap 21 H Estim Creat Clear Calc 73.3 Estimated GFR 51 POC Glucose 380 H* Random Glucose 399 H* Calcium 8.5 D Total Bilirubin 0.7 AST 92 H ALT 71 H Alkaline Phosphatase 121 H B-Natriuretic Peptide Total Protein 7.2 Albumin 3.8 Salicylates < 5.0 L Urine Opiates Screen Urine Fentanyl Screen Acetaminophen < 1 Ur Barbiturates Screen Ur Phencyclidine Scrn Ur Amphetamines Screen U Benzodiazepines Scrn Urine Cocaine Screen U Marijuana (THC) Screen Ethyl Alcohol 05/15/22 05/15/22 05/15/22 15:39 15:47 17:06 MCV MCH MCHC RDW Plt Count MPV Immature Gran % (Auto) Neut % (Auto) Lymph % (Auto) [place] % (Auto) Eos % (Auto) Baso % (Auto) Lymph # (Auto) [place] # (Auto) Eos # (Auto) Baso # (Auto) Abs Immat Gran (auto) Absolute Neuts (auto) Absolute Nucleated RBC Nucleated RBC % (auto) APTT 34.9 VBG pH 7.37 VBG pCO2 37 VBG pO2 83 VBG HCO3 21 L VBG O2 Saturation 95.0 VBG Base Excess -2.7 Anion Gap Estim Creat Clear Calc Estimated GFR POC Glucose 407 H* Random Glucose Calcium Total Bilirubin AST ALT Alkaline Phosphatase B-Natriuretic Peptide Total Protein Albumin Salicylates Urine Opiates Screen Urine Fentanyl Screen Acetaminophen Ur Barbiturates Screen Ur Phencyclidine Scrn Ur Amphetamines Screen U Benzodiazepines Scrn Urine Cocaine Screen U Marijuana (THC) Screen Ethyl Alcohol 05/15/22 05/15/22 05/15/22 17:11 18:17 18:17 MCV MCH MCHC RDW Plt Count MPV Immature Gran % (Auto) Neut % (Auto) Lymph % (Auto) [place] % (Auto) Eos % (Auto) Baso % (Auto) Lymph # (Auto) [place] # (Auto) Eos # (Auto) Baso # (Auto) Abs Immat Gran (auto) Absolute Neuts (auto) Absolute Nucleated RBC Nucleated RBC % (auto) APTT VBG pH VBG pCO2 VBG pO2 VBG HCO3 VBG O2 Saturation VBG Base Excess Anion Gap Estim Creat Clear Calc Estimated GFR POC Glucose Random Glucose Calcium Total Bilirubin AST ALT Alkaline Phosphatase B-Natriuretic Peptide 16 Total Protein Albumin Salicylates Urine Opiates Screen Not Detected Urine Fentanyl Screen POSITIVE H Acetaminophen Ur Barbiturates Screen Not Detected Ur Phencyclidine Scrn Not Detected Ur Amphetamines Screen POSITIVE H U Benzodiazepines Scrn Not Detected Urine Cocaine Screen Not Detected U Marijuana (THC) Screen Not Detected Ethyl Alcohol < 10 05/15/22 19:52 MCV MCH MCHC RDW Plt Count MPV Immature Gran % (Auto) Neut % (Auto) Lymph % (Auto) [place] % (Auto) Eos % (Auto) Baso % (Auto) Lymph # (Auto) [place] # (Auto) Eos # (Auto) Baso # (Auto) Abs Immat Gran (auto) Absolute Neuts (auto) Absolute Nucleated RBC Nucleated RBC % (auto) APTT VBG pH VBG pCO2 VBG pO2 VBG HCO3 VBG O2 Saturation VBG Base Excess Anion Gap Estim Creat Clear Calc Estimated GFR POC Glucose Random Glucose Calcium Total Bilirubin AST ALT Alkaline Phosphatase B-Natriuretic Peptide Total Protein Albumin Salicylates Urine Opiates Screen Urine Fentanyl Screen Acetaminophen Cancelled Ur Barbiturates Screen Ur Phencyclidine Scrn Ur Amphetamines Screen U Benzodiazepines Scrn Urine Cocaine Screen U Marijuana (THC) Screen Ethyl Alcohol Assessment and Plan (1) Overdose: Status: Acute (2) Deliberate medication overdose: Status: Acute (3) UTI (urinary tract infection): Status: Acute Plan This is a 51-year-old female with past medical history of DVT, diabetes, hypertension, presents to the hospital with complaints of drug overdose after having a fight with her daughter. Patient reports overdosing on trazodone, melatonin and hydrocortisone. # deliberate drug overdose - although patient denies attempting suicide she did take them after having a fight with her daughter - she has prolonged QTC - magnesium of 1.6 - will optimize magnesium above 2, admit to telemetry - repeat EKG and close monitoring of QT interval - psych consulted - Will hold all sedative home meds # UTI - positive UA - will treat with IV antibiotics - follow cultures # diabetes - continue home insulin - add low-dose sliding-scale insulin - diabetic diet # history of DVT - continue Eliquis # hypertension - stable - continue metoprolol DVT prophylaxis: Eliquis Given patient's overdose, and need for close monitoring patient will be admitted and will require minimum 2 night hospital stay for further management and evaluation Quality Stroke Does the patient have a stroke diagnosis?: No VTE Prior VTE?: Yes VTE Risk Level:: Medical - moderate - high VTE Device Contraindication: Treatment Not Indicated VTE Drug Contraindication: N/A - Med Ordered
[2022-05-15 20:55] LABS: Acetaminophen LAB < 1 mcg/mL (<30)
[2022-05-15 20:57] LABS: Magnesium 1.6 mg/dL (1.6-2.6)
[2022-05-15] MEDS: ondansetron HCL 4 MG/2 ML VIAL IVPUSH (21:21)
[2022-05-15 21:30] LABS: Glucose, Whole Blood 297 mg/dL (60-115)
--- NOTE | 2022-05-15 21:30 | MHC.RECOVSUP ---
? Reason for consult:Overdose o? Current location:ED10? o? Identified substance use concern:? -? Overdose ?? Intervention: o? Harm reduction discussion ? Plan:Suggest Treatment ? Additional information:[facility] spoke with pt about going to treatment and/or completing a referral for a [facility]. PT refused any services and stated it was a mistake.
--- NOTE | 2022-05-15 21:40 | ECG_ITS ---
Test Reason : REPEAT Blood Pressure : / mmHG Vent. Rate : 084 BPM Atrial Rate : 084 BPM P-R Int : 158 ms QRS Dur : 090 ms QT Int : 436 ms P-R-T Axes : 057 -19 017 degrees QTc Int : 515 ms Normal sinus rhythm Prolonged QT Abnormal ECG When compared with ECG of 15-MAY-2022 19:37, No significant change was found Referred By: Basim Jensen Electronically Signed By:EDWIN ALEXANDER
--- NOTE | 2022-05-15 22:06 | PHA.MEDREC ---
Pharmacy Consult ? Medication Reconciliation Pharmacy has completed the medication reconciliation. SPOKE WITH PT
[2022-05-15] MEDS: Magnesium Sulfate/H2O 2 GM/50 ML PIGGYBACK IV (22:35)
[2022-05-15] MEDS: 0.9 % Sodium Chloride 1,000 ML 100 ML IVCONT (22:37)
[2022-05-15] MEDS: Insulin Glargine,Hum.rec.anlog 100 UNIT/ML 10 ML VIAL 52 UNIT SUBCUT (22:38)
[2022-05-15 22:43] LABS: Appearance Urine CLOUDY; Color Urine YELLOW; Glucose Urine UA 500 MG/DL (NEG); Leukocyte Esterase Urine 1+ (NEG); Nitrite Urine NEG (NEG); PH 5.5 (5.0-8.0); Specific Gravity - Urine >= 1.030 (1.005-1.025); Urine Blood TRACE (NEG); Urine Ketones NEG (NEG); Urine Protein 2+ MG/DL (NEG-TRACE)
[2022-05-15 23:04] LABS: WBC Urine 30-49 /HPF (0-4)
[2022-05-15 23:05] LABS: Bacteria Urine 2+ /LPF; Squamous Epithelial Cell Urine 1+ /LPF
[2022-05-16] VITALS (12 sets, daily range): BP systolic 99–131; BP diastolic 49–72; PULSE 79–85; RESP 14–20; TEMP 36.8–37.1; O2SAT 93–98
--- NOTE | 2022-05-16 | ECG_ITS ---
Test Reason : prolong QT Blood Pressure : / mmHG Vent. Rate : 079 BPM Atrial Rate : 079 BPM P-R Int : 166 ms QRS Dur : 092 ms QT Int : 444 ms P-R-T Axes : 052 -20 004 degrees QTc Int : 509 ms Normal sinus rhythm Prolonged QT Abnormal ECG When compared with ECG of 16-MAY-2022 05:55, No significant change was found Referred By: Natty Rai Electronically Signed By:EDWIN ALEXANDER
--- NOTE | 2022-05-16 | ECG_ITS ---
Test Reason : REPEAT Blood Pressure : / mmHG Vent. Rate : 084 BPM Atrial Rate : 084 BPM P-R Int : 172 ms QRS Dur : 092 ms QT Int : 442 ms P-R-T Axes : 057 -17 014 degrees QTc Int : 522 ms Normal sinus rhythm Low voltage QRS Prolonged QT Abnormal ECG When compared with ECG of 16-MAY-2022 00:49, No significant change was found Referred By: Alicia Andrade Electronically Signed By:EDWIN ALEXANDER
[2022-05-16 00:09] LABS: Osmolality, Serum 304 mosm/kg (281-305)
--- NOTE | 2022-05-16 00:25 | PC.NURSE ---
pt sleeping comfortably on stretcher. cpap in place during sleep. respirations even and unlabored. [place] on patient. call kwabena chamberlain . 1:[address] will continue to monitor closely.
[2022-05-16 01:32] LABS: Reflex Lactate? Lactic Acid Added
--- NOTE | 2022-05-16 01:46 | PC.NURSE ---
pt refusing lactic acid blood draw
[2022-05-16 02:17] LABS: COVID-19 Test Negative (Negative)
[2022-05-16] MEDS: cefTRIAXone sodium 1 GM in 0.9 % Sodium Chloride 50 ML IV (06:30)
[2022-05-16 06:49] LABS: MANUAL DIFF FLAG NO
[2022-05-16 07:03] LABS: Basophils Percent Auto 0.7 % (0-2); Eosinophils Absolute Auto 0.1 X10*3/uL (0.0-0.4); Eosinophils Percent Auto 1.2 % (0-4); Hematocrit 40.3 % (37.0-47.0); Hemoglobin 13.9 g/dl (12.0-16.0); Imm Gran Abs Auto 0.03 X10*3/uL (0.00-0.03); Imm Gran Pct Auto 0.7 % (0.0-0.4); Lymphocytes Absolute Auto 0.9 X10*3/uL (1.2-4.9); Lymphocytes Percent Auto 20.9 % (20-40); Mean Corpuscular HGB Conc 34.5 g/dl (31.0-35.0); Mean Corpuscular Hemoglobin 31.4 pg (27.0-33.0); Mean Platelet Volume 10.6 fL (9.4-12.3); Monocytes Absolute Auto 0.3 X10*3/uL (0.1-1.2); Monocytes Percent Auto 7.4 % (2-11); Neutrophils Percent Auto 69.1 % (45-73); Platelet Count 105 X10*3/uL (160-400); Red Blood Count 4.43 X10*6/uL (4.20-5.50); Red Cell Distribution Width 12.7 % (11.0-16.0); White Blood Count 4.3 X10*3/uL (4.8-10.8)
[2022-05-16 07:10] LABS: Lactic Acid 2.1 mmol/L (0.5-2.0)
[2022-05-16 07:35] LABS: Anion Gap 15 (12-20); Blood Urea Nitrogen 16 mg/dL (9-16); Calcium 8.1 mg/dL (8.4-10.2); Carbon Dioxide 23 mmol/L (22-29); Chloride 106 mmol/L (96-108); Creatinine Clr Calc Pharmacy 106.3; Estimated Glomerular Filt Rate > 60; Glucose Random 224 mg/dL (60-115); Potassium 4.6 mmol/L (3.3-5.1); Sodium 139 mmol/L (135-145)
[2022-05-16 07:37] LABS: Glucose, Whole Blood 186 mg/dL (60-115)
[2022-05-16] MEDS: Metoprolol Tartrate 50 MG TABLET PO ×2 (08:04→20:08)
[2022-05-16] MEDS: Apixaban 5 MG TABLET PO ×2 (08:04→20:08)
[2022-05-16] MEDS: Insulin Glargine,Hum.rec.anlog 100 UNIT/ML 10 ML VIAL 52 UNIT SUBCUT (08:05)
[2022-05-16] MEDS: Insulin Lispro 100 UNIT/ML 3 ML VIAL SUBCUT ×4 (08:06→23:56)
--- NOTE | 2022-05-16 08:18 | PC.NURSE ---
did pt AM care, pt was incontinent of feces, cleaned pt and provided new linens. Brought pt her breakfast tray , pt states she is not hungry. pt wants to go back to sleep, pt is resting comfortably.
[2022-05-16 08:49] LABS: Reflex Lactate? Lactic Acid Added
--- NOTE | 2022-05-16 10:43 | MHC.CARE ---
Please consult CARE Team when Pt is medically cleared
--- NOTE | 2022-05-16 11:04 | PC.NURSE ---
Permission given to speak to her daughter regarding her hospital stay.
[2022-05-16] MEDS: Loperamide HCl 2 MG CAPSULE PO (12:55)
[2022-05-16] MEDS: Promethazine HCL 25 MG TABLET PO (12:55)
--- NOTE | 2022-05-16 13:16 | P.PNIM_ITS ---
Subjective Subjective Date of Service: 05/16/22 Interval History: nausea + diarrhea on home CPAP Review of Systems Review of Systems: Yes all other systems are reviewed and are negative Physical Exam Vital Signs: Vital Signs: Last Vital Signs Temp 98.2 F 05/16/22 13:03 Pulse 79 05/16/22 13:03 Resp 18 05/16/22 13:03 BP 131/72 05/16/22 13:03 Pulse Ox 95 05/16/22 13:03 O2 Del Method 05/16/22 13:03 Oxygen Flow Rate 6 05/15/22 15:45 BMI result Body Mass Index 34.7 Gen: in no acute distress HEENT: sclera anicteric, moist mucus membranes Neck: supple Lungs: clear to auscultation bilaterally Heart: regular rate and rhythm, no murmurs Abd: soft, non-tender, non-distended Ext: no edema Skin: warm/well-perfused Neuro: alert and oriented x3, no focal findings Psych: appropriate affect Objective Data Active Medications Apixaban (Apixaban 5 Mg Tablet) 5 mg PO BID [facility] Last Admin: 05/16/22 08:04 Dose: 5 mg Documented By: ALTHEA Dextrose (Dextrose 50 % 25 Gm/50 Ml Syringe) 25 gm IVPUSH Q15M PRN; Protocol PRN Reason: per Hypoglycemia Standing Ord. Glucose (Glucose Gel 15 Gm Gel..Gram.) 15 gm PO Q15M PRN; Protocol PRN Reason: per Hypoglycemia Standing Ord. Sodium Chloride (Ns) 1,000 mls @ 100 mls/hr IVCONT .Q10H [facility] Last Admin: 05/16/22 06:25 Dose: Not Given Documented By: DANNY Non-Admin Reason: IV Running Ceftriaxone Sodium 1 gm/ (Sodium Chloride) 50 mls @ 100 mls/hr IV Q24H [facility] Last Admin: 05/16/22 06:30 Dose: 100 mls/hr Documented By: DANNY Insulin Glargine (Insulin Glargine,Hum.Rec.Anlog 100 Unit/Ml 10 Ml Vial) 52 unit SUBCUT DAILY [facility] Last Admin: 05/16/22 08:05 Dose: 52 unit Documented By: ALTHEA Insulin Human Lispro (Insulin Lispro 100 Unit/Ml 3 Ml Vial) 0 unit SUBCUT QIDACHS [facility]; Protocol Last Admin: 05/16/22 08:06 Dose: 2 unit Documented By: ALTHEA Insulin Human Lispro (Insulin Lispro 100 Unit/Ml 3 Ml Vial) 5 unit SUBCUT DAILY@1700 [facility] Loperamide HCl (Loperamide Hcl 2 Mg Capsule) 2 mg PO Q4H PRN PRN Reason: diarrhea Last Admin: 05/16/22 12:55 Dose: 2 mg Documented By: ALTHEA Metoprolol Tartrate (Metoprolol Tartrate 50 Mg Tablet) 50 mg PO BID [facility]; Protocol Last Admin: 05/16/22 08:04 Dose: 50 mg Documented By: ALTHEA Promethazine HCl (Promethazine Hcl 25 Mg Tablet) 25 mg PO Q4H PRN PRN Reason: nausea/vomiting Last Admin: 05/16/22 12:55 Dose: 25 mg Documented By: ALTHEA Labs CBC & Chem 7: 05/16/22 06:28 05/16/22 06:28 Labs: Laboratory Results - last 24 hr 05/15/22 05/15/22 05/15/22 15:31 15:39 15:39 MCV 89.0 MCH 31.4 MCHC 35.3 H RDW 12.4 Plt Count 109 L MPV 10.8 Immature Gran % (Auto) 0.8 H Neut % (Auto) 59.8 Lymph % (Auto) 27.2 [place] % (Auto) 8.6 Eos % (Auto) 2.6 Baso % (Auto) 1.0 Lymph # (Auto) 1.0 L [place] # (Auto) 0.3 Eos # (Auto) 0.1 Baso # (Auto) 0.0 Abs Immat Gran (auto) 0.03 Absolute Neuts (auto) 2.3 Absolute Nucleated RBC 0.000 Nucleated RBC % (auto) 0.0 APTT VBG pH VBG pCO2 VBG pO2 VBG HCO3 VBG O2 Saturation VBG Base Excess Anion Gap 21 H Estim Creat Clear Calc 73.3 Estimated GFR 51 POC Glucose 380 H* Random Glucose 399 H* Osmolality Lactic Acid Calcium 8.5 D Magnesium 1.6 Total Bilirubin 0.7 AST 92 H ALT 71 H Alkaline Phosphatase 121 H B-Natriuretic Peptide Total Protein 7.2 Albumin 3.8 Urine Color Urine Appearance Urine pH Ur Specific [place] Urine Protein Urine Glucose (UA) Urine Ketones Urine Blood Urine Nitrite Ur Leukocyte Esterase Urine RBC Urine WBC Ur Squamous Epith Cells Urine Bacteria Salicylates < 5.0 L Urine Opiates Screen Urine Fentanyl Screen Acetaminophen < 1 Ur Barbiturates Screen Ur Phencyclidine Scrn Ur Amphetamines Screen U Benzodiazepines Scrn Urine Cocaine Screen U Marijuana (THC) Screen Ethyl Alcohol COVID-19 (MARCIA) COVID-19 Clin Com 05/15/22 05/15/22 05/15/22 15:39 15:47 17:06 MCV MCH MCHC RDW Plt Count MPV Immature Gran % (Auto) Neut % (Auto) Lymph % (Auto) [place] % (Auto) Eos % (Auto) Baso % (Auto) Lymph # (Auto) [place] # (Auto) Eos # (Auto) Baso # (Auto) Abs Immat Gran (auto) Absolute Neuts (auto) Absolute Nucleated RBC Nucleated RBC % (auto) APTT 34.9 VBG pH 7.37 VBG pCO2 37 VBG pO2 83 VBG HCO3 21 L VBG O2 Saturation 95.0 VBG Base Excess -2.7 Anion Gap Estim Creat Clear Calc Estimated GFR POC Glucose 407 H* Random Glucose Osmolality Lactic Acid Calcium Magnesium Total Bilirubin AST ALT Alkaline Phosphatase B-Natriuretic Peptide Total Protein Albumin Urine Color Urine Appearance Urine pH Ur Specific [place] Urine Protein Urine Glucose (UA) Urine Ketones Urine Blood Urine Nitrite Ur Leukocyte Esterase Urine RBC Urine WBC Ur Squamous Epith Cells Urine Bacteria Salicylates Urine Opiates Screen Urine Fentanyl Screen Acetaminophen Ur Barbiturates Screen Ur Phencyclidine Scrn Ur Amphetamines Screen U Benzodiazepines Scrn Urine Cocaine Screen U Marijuana (THC) Screen Ethyl Alcohol COVID-19 (MARCIA) COVID-19 [place] Com 05/15/22 05/15/22 05/15/22 17:11 17:11 18:17 MCV MCH MCHC RDW Plt Count MPV Immature Gran % (Auto) Neut % (Auto) Lymph % (Auto) [place] % (Auto) Eos % (Auto) Baso % (Auto) Lymph # (Auto) [place] # (Auto) Eos # (Auto) Baso # (Auto) Abs Immat Gran (auto) Absolute Neuts (auto) Absolute Nucleated RBC Nucleated RBC % (auto) APTT VBG pH VBG pCO2 VBG pO2 VBG HCO3 VBG O2 Saturation VBG Base Excess Anion Gap Estim Creat Clear Calc Estimated GFR POC Glucose Random Glucose Osmolality Lactic Acid Calcium Magnesium Total Bilirubin AST ALT Alkaline Phosphatase B-Natriuretic Peptide 16 Total Protein Albumin Urine Color YELLOW Urine Appearance CLOUDY Urine pH 5.5 Ur Specific [place] >= 1.030 H Urine Protein 2+ H Urine Glucose (UA) 500 H Urine Ketones NEG Urine Blood TRACE Urine Nitrite NEG Ur Leukocyte Esterase 1+ H Urine RBC 5-9 H Urine WBC 30-49 H Ur Squamous Epith Cells 1+ Urine Bacteria 2+ Salicylates Urine Opiates Screen Not Detected Urine Fentanyl Screen POSITIVE H Acetaminophen Ur Barbiturates Screen Not Detected Ur Phencyclidine Scrn Not Detected Ur Amphetamines Screen POSITIVE H U Benzodiazepines Scrn Not Detected Urine Cocaine Screen Not Detected U Marijuana (THC) Screen Not Detected Ethyl Alcohol COVID-19 (MARCIA) COVID-19 [place] Com 05/15/22 05/15/22 05/15/22 18:17 19:52 19:52 MCV MCH MCHC RDW Plt Count MPV Immature Gran % (Auto) Neut % (Auto) Lymph % (Auto) [place] % (Auto) Eos % (Auto) Baso % (Auto) Lymph # (Auto) [place] # (Auto) Eos # (Auto) Baso # (Auto) Abs Immat Gran (auto) Absolute Neuts (auto) Absolute Nucleated RBC Nucleated RBC % (auto) APTT VBG pH VBG pCO2 VBG pO2 VBG HCO3 VBG O2 Saturation VBG Base Excess Anion Gap Estim Creat Clear Calc Estimated GFR POC Glucose Random Glucose Osmolality Lactic Acid Calcium Magnesium Total Bilirubin AST ALT Alkaline Phosphatase B-Natriuretic Peptide Total Protein Albumin Urine Color Urine Appearance Urine pH Ur Specific [place] Urine Protein Urine Glucose (UA) Urine Ketones Urine Blood Urine Nitrite Ur Leukocyte Esterase Urine RBC Urine WBC Ur Squamous Epith Cells Urine Bacteria Salicylates Urine Opiates Screen Urine Fentanyl Screen Acetaminophen < 1 Cancelled Ur Barbiturates Screen Ur Phencyclidine Scrn Ur Amphetamines Screen U Benzodiazepines Scrn Urine Cocaine Screen U Marijuana (THC) Screen Ethyl Alcohol < 10 COVID-19 (MARCIA) COVID-19 [employer] 05/15/22 05/15/22 05/15/22 21:26 23:26 23:26 MCV MCH MCHC RDW Plt Count MPV Immature Gran % (Auto) Neut % (Auto) Lymph % (Auto) [place] % (Auto) Eos % (Auto) Baso % (Auto) Lymph # (Auto) [place] # (Auto) Eos # (Auto) Baso # (Auto) Abs Immat Gran (auto) Absolute Neuts (auto) Absolute Nucleated RBC Nucleated RBC % (auto) APTT VBG pH VBG pCO2 VBG pO2 VBG HCO3 VBG O2 Saturation VBG Base Excess Anion Gap Estim Creat Clear Calc Estimated GFR POC Glucose 297 H Random Glucose Osmolality 304 Lactic Acid 3.0 H* Calcium Magnesium Total Bilirubin AST ALT Alkaline Phosphatase B-Natriuretic Peptide Total Protein Albumin Urine Color Urine Appearance Urine pH Ur Specific [place] Urine Protein Urine Glucose (UA) Urine Ketones Urine Blood Urine Nitrite Ur Leukocyte Esterase Urine RBC Urine WBC Ur Squamous Epith Cells Urine Bacteria Salicylates Urine Opiates Screen Urine Fentanyl Screen Acetaminophen Ur Barbiturates Screen Ur Phencyclidine Scrn Ur Amphetamines Screen U Benzodiazepines Scrn Urine Cocaine Screen U Marijuana (THC) Screen Ethyl Alcohol COVID-19 (MARCIA) COVID-19 [place] Com 05/16/22 05/16/22 05/16/22 01:59 06:28 06:28 MCV 91.0 MCH 31.4 MCHC 34.5 RDW 12.7 Plt Count 105 L MPV 10.6 Immature Gran % (Auto) 0.7 H Neut % (Auto) 69.1 Lymph % (Auto) 20.9 [place] % (Auto) 7.4 Eos % (Auto) 1.2 Baso % (Auto) 0.7 Lymph # (Auto) 0.9 L [place] # (Auto) 0.3 Eos # (Auto) 0.1 Baso # (Auto) 0.0 Abs Immat Gran (auto) 0.03 Absolute Neuts (auto) 3.0 Absolute Nucleated RBC 0.000 Nucleated RBC % (auto) 0.0 APTT VBG pH VBG pCO2 VBG pO2 VBG HCO3 VBG O2 Saturation VBG Base Excess Anion Gap 15 Estim Creat Clear Calc 106.3 Estimated GFR > 60 POC Glucose Random Glucose 224 H Osmolality Lactic Acid Calcium 8.1 L Magnesium Total Bilirubin AST ALT Alkaline Phosphatase B-Natriuretic Peptide Total Protein Albumin Urine Color Urine Appearance Urine pH Ur Specific [place] Urine Protein Urine Glucose (UA) Urine Ketones Urine Blood Urine Nitrite Ur Leukocyte Esterase Urine RBC Urine WBC Ur Squamous Epith Cells Urine Bacteria Salicylates Urine Opiates Screen Urine Fentanyl Screen Acetaminophen Ur Barbiturates Screen Ur Phencyclidine Scrn Ur Amphetamines Screen U Benzodiazepines Scrn Urine Cocaine Screen U Marijuana (THC) Screen Ethyl Alcohol COVID-19 (MARCIA) Negative COVID-19 Clin Com See Note 05/16/22 05/16/22 06:28 07:27 MCV MCH MCHC RDW Plt Count MPV Immature Gran % (Auto) Neut % (Auto) Lymph % (Auto) [place] % (Auto) Eos % (Auto) Baso % (Auto) Lymph # (Auto) [place] # (Auto) Eos # (Auto) Baso # (Auto) Abs Immat Gran (auto) Absolute Neuts (auto) Absolute Nucleated RBC Nucleated RBC % (auto) APTT VBG pH VBG pCO2 VBG pO2 VBG HCO3 VBG O2 Saturation VBG Base Excess Anion Gap Estim Creat Clear Calc Estimated GFR POC Glucose 186 H Random Glucose Osmolality Lactic Acid 2.1 H* Calcium Magnesium Total Bilirubin AST ALT Alkaline Phosphatase B-Natriuretic Peptide Total Protein Albumin Urine Color Urine Appearance Urine pH Ur Specific [place] Urine Protein Urine Glucose (UA) Urine Ketones Urine Blood Urine Nitrite Ur Leukocyte Esterase Urine RBC Urine WBC Ur Squamous Epith Cells Urine Bacteria Salicylates Urine Opiates Screen Urine Fentanyl Screen Acetaminophen Ur Barbiturates Screen Ur Phencyclidine Scrn Ur Amphetamines Screen U Benzodiazepines Scrn Urine Cocaine Screen U Marijuana (THC) Screen Ethyl Alcohol COVID-19 (MARCIA) COVID-19 Clin Com Assessment and Plan (1) Overdose: Status: Acute Plan hospital d#2 51yo F with hx DVT, DM2, HTN, ELISE admitted after intentional overdose on trazodone, melatonin + hydroxyzine during family dispute # intentional overdose # prolonged QTc - supportive care, cardiac monitoring, IV fluids - serial EKG; QTc now improved to 505 ms - sitter, psychiatry/BHN consultation # UTI - ceftriaxone d#2, follow UCx # HTN - metoprolo # DM2 - basal/bolus insulin # VTE ppx - continue apixaban In my clinical judgment, the patient requires continued hospitalization for the following reasons: cardiac monitoring, SI Quality Stroke Does the patient have a stroke diagnosis?: No VTE Prior VTE?: Yes VTE Risk Level:: Medical - moderate - high VTE Device Contraindication: Treatment Not Indicated VTE Drug Contraindication: N/A - Med Ordered
[2022-05-16 13:30] LABS: Glucose, Whole Blood 281 mg/dL (60-115)
--- NOTE | 2022-05-16 15:37 | MHC.CM.PN ---
CM HAS ATTEMPTED TO SEE PT TWICE THROUGHOUT THE DAY, PT SLEEPING WITH HER BIPAP/CPAP ON CM WILL REVISIT
--- NOTE | 2022-05-16 16:47 | P.CNPS_ITS ---
History of Present Illness Chief Complaint: Suicidal attempt by drug ingestion [facility] Medical History (Updated 05/16/22 @ 06:00 by Alicia Andrade MD) Depression Diabetes mellitus Diabetic neuropathy GERD (gastroesophageal reflux disease) Hiatal hernia History of pulmonary embolus (PE) HTN, goal below 130/80 Hyperlipidemia Morbid obesity Osteoarthritis SVT (supraventricular tachycardia) Surgical History H/O cardiac radiofrequency ablation Hx of hysterectomy Diagnostics Vital Signs (24Hr): Vital Signs - 24 hr 05/15/22 17:05 05/15/22 17:05 05/15/22 17:24 Temperature Pulse Rate 92 93 Respiratory Rate 18 18 21 H Blood Pressure 109/54 L 119/58 L Pulse Oximetry 96 93 Oxygen Delivery Method Room Air Room Air 05/15/22 17:57 05/15/22 19:33 05/15/22 22:44 Temperature 97.9 F Pulse Rate 82 80 79 Respiratory Rate 15 12 19 Blood Pressure 106/47 L 130/69 96/45 L Pulse Oximetry 92 96 94 Oxygen Delivery Method Room Air Room Air Room Air 05/15/22 23:19 05/15/22 23:27 05/16/22 00:47 Temperature Pulse Rate 81 83 Respiratory Rate 18 17 16 Blood Pressure 106/57 L 101/49 L Pulse Oximetry 92 93 Oxygen Delivery Method CPAP CPAP 05/16/22 00:48 05/16/22 04:55 05/16/22 05:05 Temperature Pulse Rate 84 Respiratory Rate 18 18 19 Blood Pressure 113/63 Pulse Oximetry 94 Oxygen Delivery Method Room Air 05/16/22 05:40 05/16/22 08:17 05/16/22 08:35 Temperature Pulse Rate 82 85 Respiratory Rate 19 14 19 Blood Pressure 123/67 117/65 Pulse Oximetry 95 95 Oxygen Delivery Method CPAP CPAP 05/16/22 13:03 05/16/22 15:16 05/16/22 16:33 Temperature 98.2 F 98.2 F Pulse Rate 79 80 80 Respiratory Rate 18 16 20 Blood Pressure 131/72 126/63 126/63 Pulse Oximetry 95 96 98 Oxygen Delivery Method Room Air Room Air Room Air BMI result Body Mass Index 34.7 Labs Results: 05/16/22 06:28 05/16/22 06:28 Labs: Laboratory Results - last 48 hr 05/15/22 05/15/22 05/15/22 15:31 15:39 15:39 WBC 3.8 L RBC 4.81 Hgb 15.1 Hct 42.8 MCV 89.0 MCH 31.4 MCHC 35.3 H RDW 12.4 Plt Count 109 L MPV 10.8 Immature Gran % (Auto) 0.8 H Neut % (Auto) 59.8 Lymph % (Auto) 27.2 [place] % (Auto) 8.6 Eos % (Auto) 2.6 Baso % (Auto) 1.0 Lymph # (Auto) 1.0 L [place] # (Auto) 0.3 Eos # (Auto) 0.1 Baso # (Auto) 0.0 Abs Immat Gran (auto) 0.03 Absolute Neuts (auto) 2.3 Absolute Nucleated RBC 0.000 Nucleated RBC % (auto) 0.0 APTT VBG pH VBG pCO2 VBG pO2 VBG HCO3 VBG O2 Saturation VBG Base Excess Sodium 135 Potassium 4.6 Chloride 100 Carbon Dioxide 19 L Anion Gap 21 H BUN 20 H Creatinine 1.13 Estim Creat Clear Calc 73.3 Estimated GFR 51 POC Glucose 380 H* Random Glucose 399 H* Osmolality Lactic Acid Calcium 8.5 D Magnesium 1.6 Total Bilirubin 0.7 AST 92 H ALT 71 H Alkaline Phosphatase 121 H Troponin I High Sens B-Natriuretic Peptide Total Protein 7.2 Albumin 3.8 Urine Color Urine Appearance Urine pH Ur Specific [place] Urine Protein Urine Glucose (UA) Urine Ketones Urine Blood Urine Nitrite Ur Leukocyte Esterase Urine RBC Urine WBC Ur Squamous Epith Cells Urine Bacteria Salicylates < 5.0 L Urine Opiates Screen Urine Fentanyl Screen Acetaminophen < 1 Ur Barbiturates Screen Ur Phencyclidine Scrn Ur Amphetamines Screen U Benzodiazepines Scrn Urine Cocaine Screen U Marijuana (THC) Screen Ethyl Alcohol COVID-19 ([facility]) COVID-19 Clin Com 05/15/22 05/15/22 05/15/22 15:39 15:42 15:47 WBC RBC Hgb Hct MCV MCH MCHC RDW Plt Count MPV Immature Gran % (Auto) Neut % (Auto) Lymph % (Auto) [place] % (Auto) Eos % (Auto) Baso % (Auto) Lymph # (Auto) [place] # (Auto) Eos # (Auto) Baso # (Auto) Abs Immat Gran (auto) Absolute Neuts (auto) Absolute Nucleated RBC Nucleated RBC % (auto) APTT 34.9 VBG pH 7.37 VBG pCO2 37 VBG pO2 83 VBG HCO3 21 L VBG O2 Saturation 95.0 VBG Base Excess -2.7 Sodium Potassium Chloride Carbon Dioxide Anion Gap BUN Creatinine Estim Creat Clear Calc Estimated GFR POC Glucose Random Glucose Osmolality Lactic Acid Calcium Magnesium Total Bilirubin AST ALT Alkaline Phosphatase Troponin I High Sens < 3.5 B-Natriuretic Peptide Total Protein Albumin Urine Color Urine Appearance Urine pH Ur Specific [place] Urine Protein Urine Glucose (UA) Urine Ketones Urine Blood Urine Nitrite Ur Leukocyte Esterase Urine RBC Urine WBC Ur Squamous Epith Cells Urine Bacteria Salicylates Urine Opiates Screen Urine Fentanyl Screen Acetaminophen Ur Barbiturates Screen Ur Phencyclidine Scrn Ur Amphetamines Screen U Benzodiazepines Scrn Urine Cocaine Screen U Marijuana (THC) Screen Ethyl Alcohol COVID-19 ([facility]) COVID-19 [employer] Com 05/15/22 05/15/22 05/15/22 17:06 17:11 17:11 WBC RBC Hgb Hct MCV MCH MCHC RDW Plt Count MPV Immature Gran % (Auto) Neut % (Auto) Lymph % (Auto) [place] % (Auto) Eos % (Auto) Baso % (Auto) Lymph # (Auto) [place] # (Auto) Eos # (Auto) Baso # (Auto) Abs Immat Gran (auto) Absolute Neuts (auto) Absolute Nucleated RBC Nucleated RBC % (auto) APTT VBG pH VBG pCO2 VBG pO2 VBG HCO3 VBG O2 Saturation VBG Base Excess Sodium Potassium Chloride Carbon Dioxide Anion Gap BUN Creatinine Estim Creat Clear Calc Estimated GFR POC Glucose 407 H* Random Glucose Osmolality Lactic Acid Calcium Magnesium Total Bilirubin AST ALT Alkaline Phosphatase Troponin I High Sens B-Natriuretic Peptide Total Protein Albumin Urine Color YELLOW Urine Appearance CLOUDY Urine pH 5.5 Ur Specific [place] >= 1.030 H Urine Protein 2+ H Urine Glucose (UA) 500 H Urine Ketones NEG Urine Blood TRACE Urine Nitrite NEG Ur Leukocyte Esterase 1+ H Urine RBC 5-9 H Urine WBC 30-49 H Ur Squamous Epith Cells 1+ Urine Bacteria 2+ Salicylates Urine Opiates Screen Not Detected Urine Fentanyl Screen POSITIVE H Acetaminophen Ur Barbiturates Screen Not Detected Ur Phencyclidine Scrn Not Detected Ur Amphetamines Screen POSITIVE H U Benzodiazepines Scrn Not Detected Urine Cocaine Screen Not Detected U Marijuana (THC) Screen Not Detected Ethyl Alcohol COVID-19 ([facility]) COVID-19 [employer] Com 05/15/22 05/15/22 05/15/22 18:17 18:17 19:52 WBC RBC Hgb Hct MCV MCH MCHC RDW Plt Count MPV Immature Gran % (Auto) Neut % (Auto) Lymph % (Auto) [place] % (Auto) Eos % (Auto) Baso % (Auto) Lymph # (Auto) [place] # (Auto) Eos # (Auto) Baso # (Auto) Abs Immat Gran (auto) Absolute Neuts (auto) Absolute Nucleated RBC Nucleated RBC % (auto) APTT VBG pH VBG pCO2 VBG pO2 VBG HCO3 VBG O2 Saturation VBG Base Excess Sodium Potassium Chloride Carbon Dioxide Anion Gap BUN Creatinine Estim Creat Clear Calc Estimated GFR POC Glucose Random Glucose Osmolality Lactic Acid Calcium Magnesium Total Bilirubin AST ALT Alkaline Phosphatase Troponin I High Sens B-Natriuretic Peptide 16 Total Protein Albumin Urine Color Urine Appearance Urine pH Ur Specific [place] Urine Protein Urine Glucose (UA) Urine Ketones Urine Blood Urine Nitrite Ur Leukocyte Esterase Urine RBC Urine WBC Ur Squamous Epith Cells Urine Bacteria Salicylates Urine Opiates Screen Urine Fentanyl Screen Acetaminophen < 1 Ur Barbiturates Screen Ur Phencyclidine Scrn Ur Amphetamines Screen U Benzodiazepines Scrn Urine Cocaine Screen U Marijuana (THC) Screen Ethyl Alcohol < 10 COVID-19 ([facility]) COVID-19 [employer] 05/15/22 05/15/22 05/15/22 19:52 21:26 23:26 WBC RBC Hgb Hct MCV MCH MCHC RDW Plt Count MPV Immature Gran % (Auto) Neut % (Auto) Lymph % (Auto) [place] % (Auto) Eos % (Auto) Baso % (Auto) Lymph # (Auto) [place] # (Auto) Eos # (Auto) Baso # (Auto) Abs Immat Gran (auto) Absolute Neuts (auto) Absolute Nucleated RBC Nucleated RBC % (auto) APTT VBG pH VBG pCO2 VBG pO2 VBG HCO3 VBG O2 Saturation VBG Base Excess Sodium Potassium Chloride Carbon Dioxide Anion Gap BUN Creatinine Estim Creat Clear Calc Estimated GFR POC Glucose 297 H Random Glucose Osmolality 304 Lactic Acid Calcium Magnesium Total Bilirubin AST ALT Alkaline Phosphatase Troponin I High Sens B-Natriuretic Peptide Total Protein Albumin Urine Color Urine Appearance Urine pH Ur Specific [place] Urine Protein Urine Glucose (UA) Urine Ketones Urine Blood Urine Nitrite Ur Leukocyte Esterase Urine RBC Urine WBC Ur Squamous Epith Cells Urine Bacteria Salicylates Urine Opiates Screen Urine Fentanyl Screen Acetaminophen Cancelled Ur Barbiturates Screen Ur Phencyclidine Scrn Ur Amphetamines Screen U Benzodiazepines Scrn Urine Cocaine Screen U Marijuana (THC) Screen Ethyl Alcohol COVID-19 ([facility]) COVID-19 Clin Com 05/15/22 05/16/22 05/16/22 23:26 01:59 06:28 WBC 4.3 L RBC 4.43 Hgb 13.9 Hct 40.3 MCV 91.0 MCH 31.4 MCHC 34.5 RDW 12.7 Plt Count 105 L MPV 10.6 Immature Gran % (Auto) 0.7 H Neut % (Auto) 69.1 Lymph % (Auto) 20.9 [place] % (Auto) 7.4 Eos % (Auto) 1.2 Baso % (Auto) 0.7 Lymph # (Auto) 0.9 L [place] # (Auto) 0.3 Eos # (Auto) 0.1 Baso # (Auto) 0.0 Abs Immat Gran (auto) 0.03 Absolute Neuts (auto) 3.0 Absolute Nucleated RBC 0.000 Nucleated RBC % (auto) 0.0 APTT VBG pH VBG pCO2 VBG pO2 VBG HCO3 VBG O2 Saturation VBG Base Excess Sodium Potassium Chloride Carbon Dioxide Anion Gap BUN Creatinine Estim Creat Clear Calc Estimated GFR POC Glucose Random Glucose Osmolality Lactic Acid 3.0 H* Calcium Magnesium Total Bilirubin AST ALT Alkaline Phosphatase Troponin I High Sens B-Natriuretic Peptide Total Protein Albumin Urine Color Urine Appearance Urine pH Ur Specific [place] Urine Protein Urine Glucose (UA) Urine Ketones Urine Blood Urine Nitrite Ur Leukocyte Esterase Urine RBC Urine WBC Ur Squamous Epith Cells Urine Bacteria Salicylates Urine Opiates Screen Urine Fentanyl Screen Acetaminophen Ur Barbiturates Screen Ur Phencyclidine Scrn Ur Amphetamines Screen U Benzodiazepines Scrn Urine Cocaine Screen U Marijuana (THC) Screen Ethyl Alcohol COVID-19 ([facility]) Negative COVID-19 Clin Com See Note 05/16/22 05/16/22 05/16/22 06:28 06:28 07:27 WBC RBC Hgb Hct MCV MCH MCHC RDW Plt Count MPV Immature Gran % (Auto) Neut % (Auto) Lymph % (Auto) [place] % (Auto) Eos % (Auto) Baso % (Auto) Lymph # (Auto) [place] # (Auto) Eos # (Auto) Baso # (Auto) Abs Immat Gran (auto) Absolute Neuts (auto) Absolute Nucleated RBC Nucleated RBC % (auto) APTT VBG pH VBG pCO2 VBG pO2 VBG HCO3 VBG O2 Saturation VBG Base Excess Sodium 139 Potassium 4.6 Chloride 106 Carbon Dioxide 23 Anion Gap 15 BUN 16 Creatinine 0.78 Estim Creat Clear Calc 106.3 Estimated GFR > 60 POC Glucose 186 H Random Glucose 224 H Osmolality Lactic Acid 2.1 H* Calcium 8.1 L Magnesium Total Bilirubin AST ALT Alkaline Phosphatase Troponin I High Sens B-Natriuretic Peptide Total Protein Albumin Urine Color Urine Appearance Urine pH Ur Specific [place] Urine Protein Urine Glucose (UA) Urine Ketones Urine Blood Urine Nitrite Ur Leukocyte Esterase Urine RBC Urine WBC Ur Squamous Epith Cells Urine Bacteria Salicylates Urine Opiates Screen Urine Fentanyl Screen Acetaminophen Ur Barbiturates Screen Ur Phencyclidine Scrn Ur Amphetamines Screen U Benzodiazepines Scrn Urine Cocaine Screen U Marijuana (THC) Screen Ethyl Alcohol COVID-19 ([facility]IA) [employer] 05/16/22 13:17 WBC RBC Hgb Hct MCV MCH MCHC RDW Plt Count MPV Immature Gran % (Auto) Neut % (Auto) Lymph % (Auto) [place] % (Auto) Eos % (Auto) Baso % (Auto) Lymph # (Auto) [place] # (Auto) Eos # (Auto) Baso # (Auto) Abs Immat Gran (auto) Absolute Neuts (auto) Absolute Nucleated RBC Nucleated RBC % (auto) APTT VBG pH VBG pCO2 VBG pO2 VBG HCO3 VBG O2 Saturation VBG Base Excess Sodium Potassium Chloride Carbon Dioxide Anion Gap BUN Creatinine Estim Creat Clear Calc Estimated GFR POC Glucose 281 H Random Glucose Osmolality Lactic Acid Calcium Magnesium Total Bilirubin AST ALT Alkaline Phosphatase Troponin I High Sens B-Natriuretic Peptide Total Protein Albumin Urine Color Urine Appearance Urine pH Ur Specific [place] Urine Protein Urine Glucose (UA) Urine Ketones Urine Blood Urine Nitrite Ur Leukocyte Esterase Urine RBC Urine WBC Ur Squamous Epith Cells Urine Bacteria Salicylates Urine Opiates Screen Urine Fentanyl Screen Acetaminophen Ur Barbiturates Screen Ur Phencyclidine Scrn Ur Amphetamines Screen U Benzodiazepines Scrn Urine Cocaine Screen U Marijuana (THC) Screen Ethyl Alcohol COVID-19 ([facility]IA) COVID-19 [employer] Com Medications Medications Current Medications Apixaban (Apixaban 5 Mg Tablet) 5 mg PO BID [facility] Last Admin: 05/16/22 08:04 Dose: 5 mg Dextrose (Dextrose 50 % 25 Gm/50 Ml Syringe) 25 gm IVPUSH Q15M PRN; Protocol PRN Reason: per Hypoglycemia Standing Ord. Glucose (Glucose Gel 15 Gm Gel..Gram.) 15 gm PO Q15M PRN; Protocol PRN Reason: per Hypoglycemia Standing Ord. Sodium Chloride (Ns) 1,000 mls @ 100 mls/hr IVCONT .Q10H [facility] Last Admin: 05/16/22 06:25 Dose: Not Given Ceftriaxone Sodium 1 gm/ (Sodium Chloride) 50 mls @ 100 mls/hr IV Q24H [facility] Last Admin: 05/16/22 06:30 Dose: 100 mls/hr Insulin Glargine (Insulin Glargine,Hum.Rec.Anlog 100 Unit/Ml 10 Ml Vial) 52 unit SUBCUT DAILY [facility] Last Admin: 05/16/22 08:05 Dose: 52 unit Insulin Human Lispro (Insulin Lispro 100 Unit/Ml 3 Ml Vial) 0 unit SUBCUT QIDACHS [facility]; Protocol Last Admin: 05/16/22 13:40 Dose: 6 unit Insulin Human Lispro (Insulin Lispro 100 Unit/Ml 3 Ml Vial) 5 unit SUBCUT DAILY@1700 [facility] Loperamide HCl (Loperamide Hcl 2 Mg Capsule) 2 mg PO Q4H PRN PRN Reason: diarrhea Last Admin: 05/16/22 12:55 Dose: 2 mg Metoprolol Tartrate (Metoprolol Tartrate 50 Mg Tablet) 50 mg PO BID [facility]; Protocol Last Admin: 05/16/22 08:04 Dose: 50 mg Promethazine HCl (Promethazine Hcl 25 Mg Tablet) 25 mg PO Q4H PRN PRN Reason: nausea/vomiting Last Admin: 05/16/22 12:55 Dose: 25 mg Allergies Allergies Allergy/AdvReac Type Severity Reaction Status Date / Time Pt states no food/medication Allergy Unknown Anaphylaxis Uncoded 10/12/20 12:56 a Assessment & Plan I spent minutes with the patient and/or on the patient floor today, greater than?50% of which was spent counseling/coordinating care.
[2022-05-16 17:05] LABS: Glucose, Whole Blood 238 mg/dL (60-115)
[2022-05-16 19:23] LABS: Glucose, Whole Blood 201 mg/dL (60-115)
--- NOTE | 2022-05-16 20:02 | PC.NURSE ---
Hospitalist ordered this RN to hold 5 units of insulin and to give just sliding scale dose with POC of 201 at this time.
[2022-05-16] MEDS: 0.9 % Sodium Chloride 1,000 ML 100 ML IVCONT (20:09)
[2022-05-16 21:59] LABS: Glucose, Whole Blood 181 mg/dL (60-115)
--- NOTE | 2022-05-17 | ECG_ITS ---
Test Reason : PROLONG QT Blood Pressure : / mmHG Vent. Rate : 077 BPM Atrial Rate : 077 BPM P-R Int : 164 ms QRS Dur : 092 ms QT Int : 430 ms P-R-T Axes : 064 -20 011 degrees QTc Int : 486 ms Normal sinus rhythm Low voltage QRS Prolonged QT Abnormal ECG When compared with ECG of 16-MAY-2022 12:44, No significant change was found Referred By: Natty Rai Electronically Signed By:EDWIN ALEXANDER
[2022-05-17 00:25] VITALS: PULSE 85; RESP 16; O2SAT 96
[2022-05-17] MEDS: 0.9 % Sodium Chloride 1,000 ML 100 ML IVCONT ×2 (05:51→15:36)
[2022-05-17 07:15] LABS: Glucose, Whole Blood 213 mg/dL (60-115)
[2022-05-17 07:35] LABS: Hemoglobin 14.5 g/dl (12.0-16.0); Mean Corpuscular HGB Conc 34.5 g/dl (31.0-35.0); Mean Corpuscular Hemoglobin 31.2 pg (27.0-33.0); Mean Corpuscular Volume 90.3 fL (80.0-98.0); Mean Platelet Volume 10.7 fL (9.4-12.3); Platelet Count 110 X10*3/uL (160-400); Red Blood Count 4.65 X10*6/uL (4.20-5.50); Red Cell Distribution Width 12.8 % (11.0-16.0); White Blood Count 4.2 X10*3/uL (4.8-10.8)
[2022-05-17 07:48] LABS: Alanine Aminotransferase 55 U/L (0-31); Albumin Level 3.7 g/dL (3.5-5.0); Alkaline Phosphatase 109 U/L (39-117); Anion Gap 15 (12-20); Aspartate Amino Transferase 55 U/L (5-31); Bilirubin Total 0.7 mg/dL (0.0-1.0); Blood Urea Nitrogen 15 mg/dL (9-16); Calcium 8.3 mg/dL (8.4-10.2); Carbon Dioxide 23 mmol/L (22-29); Chloride 104 mmol/L (96-108); Creatinine Clr Calc Pharmacy 109.1; Estimated Glomerular Filt Rate > 60; Glucose Random 201 mg/dL (60-115); Magnesium 1.6 mg/dL (1.6-2.6); Potassium 4.2 mmol/L (3.3-5.1); Sodium 138 mmol/L (135-145); Total Protein 6.5 g/dL (6.5-8.0)
--- NOTE | 2022-05-17 09:03 | MHC.CM.PN ---
PT REPORTS SHE LIVES WITH HER DAUGHTER AND IS INDEPENDENT WITH CARE PT DENIES USE OF DME OR HOME SERVICES PT REPORTS SHE IS COVID VACCINATED, NOT BOOSTED PT SAYS SHE IS NOT ACTIVE WITH A PCP AT THIS TIME BUT HAS A NEW PT APPT WITH DR DEMETRIA SIMMONS PT REPORTS SHE HAS A HCP NAMING HER DAUGHTER HER AGENT, COPY REQUESTED OBSERVATION NOTICE DELIVERED, COPY SENT TO [facility] CURRENTLY DCP IS TBD PENDING CRISIS EVAL HOME VS IPLOC TRANSPORT PENDING DISPO FAMILY VS BLS
[2022-05-17 09:23] VITALS: BP 138/85; PULSE 77; RESP 16; O2SAT 95
[2022-05-17] MEDS: Insulin Lispro 100 UNIT/ML 3 ML VIAL SUBCUT ×4 (09:24→20:49)
[2022-05-17] MEDS: Insulin Glargine,Hum.rec.anlog 100 UNIT/ML 10 ML VIAL 52 UNIT SUBCUT (09:25)
[2022-05-17] MEDS: Apixaban 5 MG TABLET PO ×2 (09:25→20:48)
[2022-05-17] MEDS: Metoprolol Tartrate 50 MG TABLET PO ×2 (09:25→20:48)
[2022-05-17] MEDS: cefTRIAXone sodium 1 GM in 0.9 % Sodium Chloride 50 ML IV (09:26)
--- NOTE | 2022-05-17 09:41 | PC.NURSE ---
pt alert and oriented, skin pwd, respirations even unlabored, pt denies pain at this time but is reporting having nausea currently no order for anti nausea medications will reach out to the hospitalist. vs stable and normal sinus on the monitor
[2022-05-17] MEDS: ondansetron HCL 4 MG/2 ML VIAL IVPUSH (10:40)
[2022-05-17 13:20] LABS: Glucose, Whole Blood 225 mg/dL (60-115)
[2022-05-17 13:20] LABS: Glucose, Whole Blood 191 mg/dL (60-115)
--- NOTE | 2022-05-17 15:37 | PC.NURSE ---
this nurse took report from stephanie, patient currently sleeping, monitor worker nsr 80s, ivf running per order, 1:1 sitter, will continue to monitor
[2022-05-17 15:41] VITALS: BP 130/76; PULSE 81; RESP 18; TEMP 36.7; O2SAT 98
--- NOTE | 2022-05-17 16:03 | HO.PM.IMPN ---
Subjective Subjective Date of Service: 05/17/22 Interval History: c/o nausea QTc down to 486 ms Review of Systems Review of Systems: Yes all other systems are reviewed and are negative Physical Exam Vital Signs: Vital Signs: Last Vital Signs Temp 98.1 F 05/17/22 15:41 Pulse 81 05/17/22 15:41 Resp 18 05/17/22 15:41 BP 130/76 05/17/22 15:41 Pulse Ox 98 05/17/22 15:41 O2 Del Method 05/17/22 15:41 Oxygen Flow Rate 6 05/15/22 15:45 BMI result Body Mass Index 34.7 Gen: in no acute distress HEENT: sclera anicteric, moist mucus membranes Neck: supple Lungs: clear to auscultation bilaterally Heart: regular rate and rhythm, no murmurs Abd: soft, non-tender, non-distended Ext: no edema Skin: warm/well-perfused Neuro: alert and oriented x3, no focal findings Psych: appropriate affect Objective Data Active Medications Apixaban (Apixaban 5 Mg Tablet) 5 mg PO BID [facility] Last Admin: 05/17/22 09:25 Dose: 5 mg Documented By: JUSTIN Dextrose (Dextrose 50 % 25 Gm/50 Ml Syringe) 25 gm IVPUSH Q15M PRN; Protocol PRN Reason: per Hypoglycemia Standing Ord. Glucose (Glucose Gel 15 Gm Gel..Gram.) 15 gm PO Q15M PRN; Protocol PRN Reason: per Hypoglycemia Standing Ord. Sodium Chloride (Ns) 1,000 mls @ 100 mls/hr IVCONT .Q10H [facility] Last Admin: 05/17/22 15:36 Dose: 100 mls/hr Documented By: JESSICA Ceftriaxone Sodium 1 gm/ (Sodium Chloride) 50 mls @ 100 mls/hr IV Q24H [facility] Last Infusion: 05/17/22 10:00 Dose: 100 mls/hr Documented By: JUSTIN Insulin Glargine (Insulin Glargine,Hum.Rec.Anlog 100 Unit/Ml 10 Ml Vial) 52 unit SUBCUT DAILY [facility] Last Admin: 05/17/22 09:25 Dose: 52 unit Documented By: JUSTIN Insulin Human Lispro (Insulin Lispro 100 Unit/Ml 3 Ml Vial) 0 unit SUBCUT QIDACHS [facility]; Protocol Last Admin: 05/17/22 13:40 Dose: 2 unit Documented By: FREDDIE Insulin Human Lispro (Insulin Lispro 100 Unit/Ml 3 Ml Vial) 5 unit SUBCUT DAILY@1700 [facility] Last Admin: 05/16/22 20:02 Dose: Not Given Documented By: GOOD Non-Admin Reason: Physician Approved Loperamide HCl (Loperamide Hcl 2 Mg Capsule) 2 mg PO Q4H PRN PRN Reason: diarrhea Last Admin: 05/16/22 12:55 Dose: 2 mg Documented By: ALTHEA Metoprolol Tartrate (Metoprolol Tartrate 50 Mg Tablet) 50 mg PO BID [facility]; Protocol Last Admin: 05/17/22 09:25 Dose: 50 mg Documented By: JUSTIN Ondansetron HCl (Ondansetron Hcl 4 Mg/2 Ml Vial) 4 mg IVPUSH Q4H PRN PRN Reason: Nausea Last Admin: 05/17/22 10:40 Dose: 4 mg Documented By: JUSTIN Promethazine HCl (Promethazine Hcl 25 Mg Tablet) 25 mg PO Q4H PRN PRN Reason: nausea/vomiting Last Admin: 05/16/22 12:55 Dose: 25 mg Documented By: ALTHEA Labs CBC & Chem 7: 05/17/22 07:22 05/17/22 07:22 Labs: Laboratory Results - last 24 hr 05/16/22 05/16/22 05/16/22 17:01 19:18 21:55 MCV MCH MCHC RDW Plt Count MPV Absolute Nucleated RBC Nucleated RBC % (auto) Anion Gap Estim Creat Clear Calc Estimated GFR POC Glucose 238 H 201 H 181 H Random Glucose Calcium Magnesium Total Bilirubin AST ALT Alkaline Phosphatase Total Protein Albumin 05/17/22 05/17/22 05/17/22 07:05 07:22 07:22 MCV 90.3 MCH 31.2 MCHC 34.5 RDW 12.8 Plt Count 110 L MPV 10.7 Absolute Nucleated RBC 0.000 Nucleated RBC % (auto) 0.0 Anion Gap 15 Estim Creat Clear Calc 109.1 Estimated GFR > 60 POC Glucose 213 H Random Glucose 201 H Calcium 8.3 L Magnesium 1.6 Total Bilirubin 0.7 AST 55 H ALT 55 H Alkaline Phosphatase 109 Total Protein 6.5 Albumin 3.7 05/17/22 05/17/22 10:39 13:15 MCV MCH MCHC RDW Plt Count MPV Absolute Nucleated RBC Nucleated RBC % (auto) Anion Gap Estim Creat Clear Calc Estimated GFR POC Glucose 225 H 191 H Random Glucose Calcium Magnesium Total Bilirubin AST ALT Alkaline Phosphatase Total Protein Albumin Microbiology Microbiology Results: Microbiology 05/17/22 07:22 Blood Culture - Final Blood - Venous 05/17/22 07:22 Blood Culture - Final Blood - Venous Assessment and Plan (1) Overdose: Status: Acute Plan hospital d#3 51yo F with hx DVT, DM2, HTN, ELISE admitted after intentional overdose on trazodone, melatonin + hydroxyzine during family dispute # intentional overdose # prolonged QTc - supportive care, cardiac monitoring, IV fluids - serial EKG; QTc now improved to 486 ms - sitter, psychiatry/BHN consultation. she is now medically cleared # UTI - ceftriaxone d#3, change to nitrofurantoin upon d/c, UCx was never sent from ED # HTN - metoprolol # DM2 - basal/bolus insulin # hx DVT - apixaban # VTE ppx - continue apixaban In my clinical judgment, the patient requires continued hospitalization for the following reasons: SI, safe disposition Quality Stroke Does the patient have a stroke diagnosis?: No VTE Prior VTE?: Yes VTE Risk Level:: Medical - moderate - high VTE Device Contraindication: Treatment Not Indicated VTE Drug Contraindication: N/A - Med Ordered
[2022-05-17 19:48] LABS: Glucose, Whole Blood 155 mg/dL (60-115)
[2022-05-17 20:30] VITALS: BP 140/83; PULSE 76; RESP 12; O2SAT 98
[2022-05-17 22:26] LABS: Glucose, Whole Blood 150 mg/dL (60-115)
[2022-05-17 23:56] VITALS: BP 132/68
[2022-05-18 04:09] VITALS: BP 138/67; PULSE 80; RESP 18; TEMP 36.7; O2SAT 97
[2022-05-18] MEDS: cefTRIAXone sodium 1 GM in 0.9 % Sodium Chloride 50 ML IV (07:11)
[2022-05-18 07:29] LABS: Glucose, Whole Blood 122 mg/dL (60-115)
[2022-05-18] MEDS: Metoprolol Tartrate 50 MG TABLET PO ×2 (09:18→23:08)
[2022-05-18] MEDS: Apixaban 5 MG TABLET PO ×2 (09:18→23:08)
[2022-05-18 09:20] VITALS: BP 141/83; PULSE 76; RESP 16
[2022-05-18] MEDS: Nitrofurantoin Monohyd/M-Cryst 100 MG CAPSULE PO ×2 (11:00→23:08)
--- NOTE | 2022-05-18 11:37 | P.PNIM_ITS ---
Subjective Subjective Date of Service: 05/18/22 Interval History: nausea improved awaiting psychiatry bed Review of Systems Review of Systems: Yes all other systems are reviewed and are negative Physical Exam Vital Signs: Vital Signs: Last Vital Signs Temp 98.1 F 05/18/22 04:09 Pulse 76 05/18/22 09:20 Resp 16 05/18/22 09:20 BP 141/83 H 05/18/22 09:20 Pulse Ox 97 05/18/22 04:09 O2 Del Method 05/18/22 04:09 Oxygen Flow Rate 6 05/15/22 15:45 BMI result Body Mass Index 34.7 Gen: in no acute distress HEENT: sclera anicteric, moist mucus membranes Neck: supple Lungs: clear to auscultation bilaterally Heart: regular rate and rhythm, no murmurs Abd: soft, non-tender, non-distended Ext: no edema Skin: warm/well-perfused Neuro: alert and oriented x3, no focal findings Psych: restricted affect Objective Data Active Medications Apixaban (Apixaban 5 Mg Tablet) 5 mg PO BID COUNT INCLUDES THE [facility] Last Admin: 05/18/22 09:18 Dose: 5 mg Documented By: FREDDIE Dextrose (Dextrose 50 % 25 Gm/50 Ml Syringe) 25 gm IVPUSH Q15M PRN; Protocol PRN Reason: per Hypoglycemia Standing Ord. Glucose (Glucose Gel 15 Gm Gel..Gram.) 15 gm PO Q15M PRN; Protocol PRN Reason: per Hypoglycemia Standing Ord. Insulin Glargine (Insulin Glargine,Hum.Rec.Anlog 100 Unit/Ml 10 Ml Vial) 52 unit SUBCUT DAILY COUNT INCLUDES THE [facility] Last Admin: 05/18/22 09:19 Dose: Not Given Documented By: FREDDIE Non-Admin Reason: held pt not eating much Comments: primary rn aware Insulin Human Lispro (Insulin Lispro 100 Unit/Ml 3 Ml Vial) 0 unit SUBCUT QIDACHS COUNT INCLUDES THE [facility]; Protocol Last Admin: 05/18/22 08:50 Dose: Not Given Documented By: JEAN-PIERRE Non-Admin Reason: No Insulin Coverage Insulin Human Lispro (Insulin Lispro 100 Unit/Ml 3 Ml Vial) 5 unit SUBCUT DAILY@1700 COUNT INCLUDES THE [facility] Last Admin: 05/17/22 20:49 Dose: 5 unit Documented By: HUANG Loperamide HCl (Loperamide Hcl 2 Mg Capsule) 2 mg PO Q4H PRN PRN Reason: diarrhea Last Admin: 05/16/22 12:55 Dose: 2 mg Documented By: ALTHEA Metoprolol Tartrate (Metoprolol Tartrate 50 Mg Tablet) 50 mg PO BID COUNT INCLUDES THE [facility]; Protocol Last Admin: 05/18/22 09:18 Dose: 50 mg Documented By: FREDDIE Nitrofurantoin Macrocrystals (Nitrofurantoin Monohyd/M-Cryst 100 Mg Capsule) 100 mg PO Q12H COUNT INCLUDES THE [facility] Last Admin: 05/18/22 11:00 Dose: 100 mg Documented By: JEAN-PIERRE Ondansetron HCl (Ondansetron Hcl 4 Mg/2 Ml Vial) 4 mg IVPUSH Q4H PRN PRN Reason: Nausea Last Admin: 05/17/22 10:40 Dose: 4 mg Documented By: JUSTIN Promethazine HCl (Promethazine Hcl 25 Mg Tablet) 25 mg PO Q4H PRN PRN Reason: nausea/vomiting Last Admin: 05/16/22 12:55 Dose: 25 mg Documented By: ALTHEA Labs CBC & Chem 7: 05/17/22 07:22 05/17/22 07:22 Labs: Laboratory Results - last 24 hr 05/17/22 05/17/22 05/17/22 10:39 13:15 19:41 POC Glucose 225 H 191 H 155 H 05/17/22 05/18/22 22:22 07:15 POC Glucose 150 H 122 H Microbiology Microbiology Results: Microbiology 05/17/22 07:22 Blood Culture - Preliminary Blood - Venous No growth after 24 hours. 05/17/22 07:22 Blood Culture - Preliminary Blood - Venous No growth after 24 hours. 05/17/22 07:22 Blood Culture - Final Blood - Venous 05/17/22 07:22 Blood Culture - Final Blood - Venous Assessment and Plan (1) Overdose: Status: Acute Plan hospital d#4 51yo F with hx DVT, DM2, HTN, ELISE admitted after intentional overdose on trazodone, melatonin + hydroxyzine during family dispute # intentional overdose # prolonged QTc - no specific antidote required - serial EKGs done, QTc decreased to 486 ms - sitter, psychiatry/BHN consultation. she is now medically cleared and awaiting psychiatry bed # UTI - ceftriaxone d#3, change to nitrofurantoin today, UCx was never sent from ED # HTN - metoprolol # DM2 - basal/bolus insulin # hx DVT - apixaban # VTE ppx - continue apixaban In my clinical judgment, the patient requires continued hospitalization for the following reasons: SI, safe disposition Quality Stroke Does the patient have a stroke diagnosis?: No VTE Prior VTE?: Yes VTE Risk Level:: Medical - moderate - high VTE Device Contraindication: Treatment Not Indicated VTE Drug Contraindication: N/A - Med Ordered
[2022-05-18 13:53] LABS: Glucose, Whole Blood 147 mg/dL (60-115)
--- NOTE | 2022-05-18 14:22 | MHC.CM.PN ---
Per discussion w/Pallavi from CARE team, an INPT bed search is being conducted. CM to await results from CARE team and assist as needed
[2022-05-18 15:48] VITALS: BP 120/66; PULSE 79; RESP 16; TEMP 36.8; O2SAT 98
[2022-05-18 17:03] LABS: Glucose, Whole Blood 151 mg/dL (60-115)
[2022-05-18] MEDS: Insulin Lispro 100 UNIT/ML 3 ML VIAL SUBCUT ×2 (18:21→18:22)
--- NOTE | 2022-05-18 21:54 | PC.NURSE ---
Patient sleeping at this time, patient on 1:1 obs.
[2022-05-18 23:10] VITALS: BP 151/77; PULSE 77; RESP 16; TEMP 36.7; O2SAT 97
[2022-05-18 23:14] LABS: Glucose, Whole Blood 95 mg/dL (60-115)
--- NOTE | 2022-05-19 00:09 | PC.NURSE ---
Patient resting comfortably in bed. Patient is able to get up with assistance to bedside commode. Provided patient with fluids and patient denies any other needs at this time. Patient is currently on a 1:1.
--- NOTE | 2022-05-19 05:27 | PC.NURSE ---
Patient sleeping in bed, NAD.
[2022-05-19 07:38] LABS: Glucose, Whole Blood 138 mg/dL (60-115)
[2022-05-19] MEDS: Apixaban 5 MG TABLET PO ×2 (08:35→21:36)
[2022-05-19] MEDS: Metoprolol Tartrate 50 MG TABLET PO ×2 (08:35→21:36)
[2022-05-19] MEDS: Insulin Glargine,Hum.rec.anlog 100 UNIT/ML 10 ML VIAL 52 UNIT SUBCUT (08:35)
[2022-05-19] MEDS: Nitrofurantoin Monohyd/M-Cryst 100 MG CAPSULE PO ×2 (08:59→21:36)
[2022-05-19 11:59] LABS: Glucose, Whole Blood 136 mg/dL (60-115)
--- NOTE | 2022-05-19 14:05 | PM.DS ---
DS: Providers Provider Date of Service: 05/19/22 Date of admission: 05/19/22 10:07 Primary care physician: Unknown Physician Consults: 05/16/22 17:09 Consult to Care Team Routine Comment: Reason for consultation: suicide attempt by ovderdose, ?dispo to psych inpatient 05/17/22 08:12 BHN [Consult to Crisis] Stat Reason for consultation: intentional overdose, medically cleared DS: Diagnosis Discharge Diagnosis (1) Overdose: Status: Acute DS: Summary Hospital Course Hospital Course: 51-year-old female with past medical history of GERD, HTN, osteoarthritis, diabetes, diabetic neuropathy, depression, HLD, history of SVT, presents to the hospital after ingesting various pills after of having a fight with her daughter.? Patient reports that she did not want to hurt herself and she took them after having a fight with her daughter.? She took trazodone, hydrocortisone, and melatonin.? She reports that she took more than 10 pills.? At this time patient denies any suicidal ideation.? She denies any headache or change in vision, no chest pain, shortness of breath, no abdominal pain nausea or vomiting, no diarrhea constipation, no urinary symptoms and no lower extremity edema. On arrival to the ED patient hemodynamically stable with hypotension with blood pressure in the 80s over 30s, patient resuscitated with IV fluids with normalization of her blood pressure Labs are significant for WBC count of 3.8, pH of 7.37, bicarb of 21, osmolality of 304, lactic acid of 3.0, magnesium of 1.6, AST of 92, ALT of 71, UA positive for leukocyte Estrace and WBC, UDS positive for fentanyl, amphetamines, estimate of in an salicylate acid negative Initial EKG on arrival showed a QTC of 531, 2nd EKG showed a QTC of 577, patient received magnesium, and will be admitted for further management and evaluation. patient admitted QTC normalized. Medically acceptable for transfer to inpatient psychiatry Time Spent with Patient Time attestation: Total time spent providing and/or coordinating discharge services: Discharge coordination time: Greater than 30 minutes Quality: Safe Use of Opioids Does Pt have an Active Cancer Diagnosis on the Problem List?: No Quality: Stroke Does the patient have a stroke diagnosis?: No Physical Exam Vital Signs: Vital Signs: Last Vital Signs Temp 98.1 F 05/18/22 23:10 Pulse 77 05/18/22 23:10 Resp 16 05/18/22 23:10 BP 151/77 H 05/18/22 23:10 Pulse Ox 97 05/18/22 23:10 O2 Del Method 05/18/22 23:10 Oxygen Flow Rate 6 05/15/22 15:45 BMI result Body Mass Index 34.7 Const: Other: no acute distress Resp: Other: clear to auscultation bilaterally. No rales rhonchi or wheezes Cardio: Other: no S4; positive S1-S2; no S3 murmurs rubs gallops GI: Other: soft nontender nondistended normoactive bowel sounds Neuro: Other: cranial nerves 2-12 grossly intact as tested. Motor is 5/5 all extremities. Sensation is intact. Cognition is normal Extrem: Other: no edema bilaterally DS: Data Data Completed and Pending Labs on day of discharge: Laboratory Results - last 24 hr 05/18/22 05/18/22 05/19/22 16:54 23:06 07:33 POC Glucose 151 H 95 138 H 05/19/22 11:54 POC Glucose 136 H Preliminary micro results at discharge 05/17/22 07:22 Blood Culture - Preliminary Blood - Venous No growth after 48 hours. 05/17/22 07:22 Blood Culture - Preliminary Blood - Venous No growth after 48 hours. Discharge Plan Discharge Disposition: Xfer Psychiatric Hosp Referrals: Leah Pruitt MD [Physician] - 1 Week Discharge Medications: New nitrofurantoin macrocrystal 100 mg capsule 100 mg PO BID Qty: 10 0RF Rx Instructions: must administer with a meal/food Continued glipizide 5 mg tablet extended release 24hr 1 tab PO DAILY hydroxyzine HCl 50 mg tablet 1 tab PO TID PRN (Reason: Anxiety) trazodone 100 mg tablet 2 tab PO QPM metoprolol tartrate 50 mg tablet 1 tab PO BID gabapentin 300 mg capsule 2 cap PO TID insulin lispro 100 unit/mL solution 5 unit subcut DAILY@1700 Trulicity 0.75 mg/0.5 mL pen injector 0.5 ml subcut QWEEK Rx Instructions: THURSDAY cetirizine [All Day Allergy (cetirizine)] 10 mg tablet 10 mg PO DAILY PRN (Reason: Allergy Symptoms) Eliquis 5 mg tablet 5 mg PO BID Lantus Solostar U-100 Insulin 100 unit/mL (3 mL) insulin pen 52 unit subcut DAILY Discharge Orders: Discharge Order (Routine); Ordered 05/19/22 Ordered By: Kaushik Fajardo Forms: Patient Portal Discharge page Care Plan Goals: psychiatric health Health Concerns: intentional overdose, UTI Plan of Treatment: transfer to inpatient psychiatry
--- NOTE | 2022-05-19 17:02 | PC.NURSE ---
catheter balloon emptied of 10 ml, removed without issue. ambulatory in room w smooth steady gait. bright affect. 2/3 ivs removed.
[2022-05-19 17:08] LABS: Glucose, Whole Blood 123 mg/dL (60-115)
[2022-05-19] MEDS: Insulin Lispro 100 UNIT/ML 3 ML VIAL SUBCUT (17:28)
[2022-05-19 17:41] LABS: COVID-19 Test Negative (Negative)
[2022-05-19 19:12] VITALS: PULSE 74; RESP 16; O2SAT 93
--- NOTE | 2022-05-19 19:13 | PC.NURSE ---
Report received from RN alyse, pt resting in bed. no c/o pain or discomfort. awaiting call for report
[2022-05-19 19:33] VITALS: BP 145/79; PULSE 72; RESP 15; TEMP 36.4; O2SAT 97
[2022-05-19 20:08] VITALS: BP 146/74; PULSE 67; RESP 18; TEMP 36.7; O2SAT 95
[2022-05-19 21:15] LABS: Glucose, Whole Blood 116 mg/dL (60-115)
[2022-05-19] MEDS: Acetaminophen 325 MG TABLET 650 MG PO (21:37)
--- NOTE | 2022-05-19 21:40 | PC.NURSE ---
pt resting in bed, no c/o pain or discomfort. given bedtime snack
[2022-05-20 11:52] LABS: Glucose, Whole Blood 127 mg/dL (60-115)
[2022-05-21 07:43] LABS: Glucose, Whole Blood 119 mg/dL (60-115)
[2022-05-21 11:17] LABS: Glucose, Whole Blood 140 mg/dL (60-115)
== END 2022-05-19 22:47 | DRG 817 ==
LOC: HO.ED 15:40 → HO.EDOVER 20:43
PROVIDERS: Family Medicine; Admitting Provider Internal Medicine; Emergency Provider Emergency Medicine; Visit Provider Hospitalist
DX: T50.912A Poisoning by multiple unspecified drugs, medicaments and biological substances, intentional self-harm, initial encounter (principal); E11.9 Type 2 diabetes mellitus without complications; E66.01 Morbid (severe) obesity due to excess calories; N39.0 Urinary tract infection, site not specified; I10 Essential (primary) hypertension; R94.31 Abnormal electrocardiogram [ECG] [EKG]; E78.5 Hyperlipidemia, unspecified; Z20.822 Contact with and (suspected) exposure to COVID-19; Z68.34 Body mass index [BMI] 34.0-34.9, adult; Z86.711 Personal history of pulmonary embolism; Z56.0 Unemployment, unspecified; Z79.4 Long term (current) use of insulin; Z79.01 Long term (current) use of anticoagulants; Z79.899 Other long term (current) drug therapy
CPT/HCPCS: 36415; 80048; 80053; 80143; 80179; 80307; 81001; 82077; 82803; 82947; 83605; 83735; 83880; 83930; 84484; 85025; 85027; 85730; 87040; 87635; 93005; 94660; 99285; J0696; J2405; J3475

== ENCOUNTER 2022-05-19 22:48 | Inpatient (IN) | payer OTHER, SELFPAY ==
[2022-05-19 22:20] VITALS: BP 147/86; PULSE 70; RESP 16; TEMP 36.4; O2SAT 99
--- NOTE | 2022-05-20 | ECG_ITS ---
Test Reason : qtc prolongation Blood Pressure : / mmHG Vent. Rate : 071 BPM Atrial Rate : 071 BPM P-R Int : 166 ms QRS Dur : 090 ms QT Int : 432 ms P-R-T Axes : 056 -27 006 degrees QTc Int : 469 ms Normal sinus rhythm Normal ECG When compared with ECG of 17-MAY-2022 09:13, QT has shortened Referred By: Natasha Orellana Electronically Signed By:CHRISTINA SCHAFER
[2022-05-20] MEDS: hydrOXYzine HCL 25 MG TABLET PO (02:20)
--- NOTE | 2022-05-20 05:55 | PC.ADMIT ---
Pt is a 51 year old female admitted to the unit after referral from N at [facility]. Pt arrived on unit at 2315, legal status CV. Medical issues: GERD, HTN, osteoarthritis, diabetes, diabetic neuropathy, hyerlipidemia, and hx SVT. This is pt's first inpatient admission, denies history of mental health treatment or providers. Pt was brought to the ED on 05/15 after an intenital overdose on trazodone, metoprolol, tylenol and melatonin. Pt was initially medically admitted with hypotension and abnormal labs, as well as abnormal EKGs; QTC ranged from 577 to 486 most recently on 05/17. Pt was medically cleared on 05/17 and evaluated/referred for inpatient admission. Pt had been living with her daughter for 5 years and they reportedly got into an argument after her daughter told her that she could no longer live with her because she was no longer going to deal with her anger and outbursts. Pt reported taking the overdose with the intent to kill herself. During the crisis assessment pt reportedly became belligerent at times and uncooperative with answering questions. At the time of admission to the unit pt was pleasant and cooperative, presented with depressed, blunted mood and affect. She feels embarassed about and regrets her attempt. She denies SI or self-harming thoughts at this time, denies HI. Pt also denies any perceptual disturbances, no apparent evidence of psychosis observed. Nurse to nurse completed prior to admission. Provider notified of admission and orders obtained. Treatment plan initiated. Pt placed on 15 minute safety checks, contracts for unit safety and will seek out staff if needed.
[2022-05-20 09:15] VITALS: BP 132/78; PULSE 82; RESP 18; TEMP 36.8; O2SAT 96
[2022-05-20 09:54] LABS: Cholesterol 127 mg/dL; HDL Cholesterol 24 mg/dL; LDL Cholesterol Calculated 54 mg/dl; Magnesium 1.3 mg/dL (1.6-2.6); Triglycerides 248 mg/dL
[2022-05-20 10:09] LABS: Free T4 (Free Thyroxine) 1.44 ng/dL (0.71-1.85); Thyroid Stimulating Hormone 2.19 uIU/mL (0.32-4.0)
[2022-05-20 10:28] LABS: Folate > 20.0 ng/mL (> or = 4.0); Vitamin B12 349 pg/mL (200-900)
--- NOTE | 2022-05-20 10:49 | HO.PSYADMNOT ---
HPI Date of Service: 05/20/22 Chief Complaint: SI, overdose Sources of Information: patient interviewed, chart reviewed and crisis/core team assessment reviewed HPI Subjective Notes: Nieves Warning, Conditional Voluntary and 3 Day Narrative: Ms. Back is a 51 year-old woman with hx of MDD. She was brought to [facility] via EMS after police was called after pt had told daughter that she planned OD o nmedications.In the ED, pt sedated but arousable. She was admitted medically for further observation as she presented with prolonged Qtc. Per attending Dr. Fajardo: 51-year-old female with past medical history of GERD, HTN, osteoarthritis, diabetes, diabetic neuropathy, depression, HLD, history of SVT, presents to the hospital after ingesting various pills after of having a fight with her daughter.? Patient reports that she did not want to hurt herself and she took them after having a fight with her daughter.? She took trazodone, hydrocortisone, and melatonin.? She reports that she took more than 10 pills.? At this time patient denies any suicidal ideation.? She denies any headache or change in vision, no chest pain, shortness of breath, no abdominal pain nausea or vomiting, no diarrhea constipation, no urinary symptoms and no lower extremity edema. On arrival to the ED patient hemodynamically stable with hypotension with blood pressure in the 80s over 30s, patient resuscitated with IV fluids with normalization of her blood pressure Labs are significant for WBC count of 3.8, pH of 7.37, bicarb of 21, osmolality of 304, lactic acid of 3.0, magnesium of 1.6, AST of 92, ALT of 71, UA positive for leukocyte Estrace and WBC, UDS positive for fentanyl, amphetamines, estimate of in an salicylate acid negative Initial EKG on arrival showed a QTC of 531, 2nd EKG showed a QTC of 577, patient received magnesium, and will be admitted for further management and evaluation. On the unit, pt presents as frustrated, she reports she did not think she needed to be on the unit. She reported not feeling comfortable. She denies prior hx of suicidal ideation or attempts. She reports intentional OD was impulsive in that she had not planned or think about and it was in response to having argument with her daughter with whom she has been living for the past 5 years. Pt reports they often clash as she feels her daughter not helping with keeping apartment clean and organized. She reports feeling ignored, nor heard when voicing concern to her daughter. She adamantly denies suicidal or homicidal ideation. She regrets the OD. She also reports increased stressed related to ongoing GI symptoms- apparently IBS with predominant diarrhea, which limits her ability to go out of her house. She denies that she was having suicidal ideation prior to attempt. She denies hx of VH/AH. No hx of hypomania or mandi. Past Psychiatric History: Inpatient: none OP: none now, but used to have services through [facility]. Past medication trials: none Medical Evaluation Reviewed: Yes Low Mg- 1.4 on admission, but EKG normal. No Qtc prolongation, K wnl. [facility] Medical History (Updated 05/21/22 @ 08:13 by Natasha Orellana) Depression Diabetes mellitus Diabetic neuropathy GERD (gastroesophageal reflux disease) Hiatal hernia History of pulmonary embolus (PE) HTN, goal below 130/80 Hyperlipidemia Morbid obesity Osteoarthritis SVT (supraventricular tachycardia) Surgical History H/O cardiac radiofrequency ablation Hx of hysterectomy Family History: none Social History: Lives with jose. Has two grandchildren. Currently not working. Substance History: denies Trauma History: none Diagnostics Vital Signs (24Hr): Vital Signs - 24 hr 05/19/22 22:20 Temperature 97.6 F Pulse Rate 70 Respiratory Rate 16 Blood Pressure 147/86 H Pulse Oximetry 99 Oxygen Delivery Method Room Air Labs Results: 05/20/22 09:03 Labs: Laboratory Results - last 48 hr 05/20/22 05/20/22 09:03 09:03 Magnesium 1.3 L* Triglycerides 248 Cholesterol 127 LDL Cholesterol, Calc 54 HDL Cholesterol 24 Vitamin B12 349 Folate > 20.0 TSH 2.19 Free T4 1.44 Meds/Allergies Meds Home Medications Medication Instructions Recorded Confirmed Type apixaban 5 mg tablet (Eliquis) 5 mg PO BID 10/12/20 05/20/22 History cetirizine 10 mg tablet (All Day 10 mg PO DAILY PRN Allergy Symptoms 10/12/20 05/20/22 History Allergy (cetirizine)) insulin glargine 100 unit/mL (3 52 unit subcut DAILY 10/12/20 05/20/22 History mL) subcutaneous pen (Lantus Solostar U-100 Insulin) dulaglutide 0.75 mg/0.5 mL 0.5 ml subcut QWEEK 05/15/22 05/20/22 History subcutaneous pen injector (Trulicity) gabapentin 300 mg capsule 2 cap PO TID 05/15/22 05/20/22 History glipizide 5 mg tablet, extended 1 tab PO DAILY 05/15/22 05/20/22 History release 24 hr hydroxyzine HCl 50 mg tablet 1 tab PO TID PRN Anxiety 05/15/22 05/20/22 History insulin lispro 100 unit/mL 5 unit subcut DAILY@1700 05/15/22 05/20/22 History subcutaneous solution metoprolol tartrate 50 mg tablet 1 tab PO BID 05/15/22 05/20/22 History trazodone 100 mg tablet 2 tab PO QPM 05/15/22 05/20/22 History Allergies Allergies Allergy/AdvReac Type Severity Reaction Status Date / Time No Known Allergies Allergy Verified 05/20/22 05:28 Mental Status Exam Mental Status Exam Narrative: Appearance: casually groomed, fair hygiene in NAD Behavior:guarded psychomotor: no agitation or retardation noted Speech: clear, normal rate/rhythm/volume, spontaneous Thought process:linear Thought content:no signs of psychosis, wanting to go home soon Mood: frustrated Affect: congruent SI:adamantly denies HI:none VH/AH:none Delusions:none Insight/judgment:fair x 2. Memory/cog: alert, oriented x 3. grossly intact to conversational testing. Assessment & Plan Assessment & Plan (1) MDD (major depressive disorder), recurrent episode, moderate: Status: Acute Code(s): F33.1 - Major depressive disorder, recurrent, moderate Plan Ms. Back is a 51 year-old woman with hx of MDD. No prior psych admission to inpt unit. She was brought via EMS after intentional OD on number of medications. Pt in ED sedated but arousable, admitted medically for observation of Qtc prolongations, which has now resolved. Pt describes OD as impulsive in setting of argument with daughter. Currently denies SI/HI. We discussed risks, benefits and alternative treatment options. She agrees to start remeron for sleep and mood. PLAN 1. Admit to M3, CV, 3 day, 15 minutes checks for safety. 2. Obtain collateral information from daughter 3. Aftercare planning 4. Start remeron 15mg po qhs. Patient educated on: diagnosis and medication risk/benefits Reason for continued inpatient stay Substantial Risk for: harm to self
[2022-05-20 12:53] LABS: Glucose, Whole Blood 178 mg/dL (60-115)
[2022-05-20] MEDS: Insulin Lispro 100 UNIT/ML 3 ML VIAL SUBCUT ×2 (13:00→20:31)
[2022-05-20 13:34] LABS: Calcium 8.4 mg/dL (8.4-10.2)
[2022-05-20] MEDS: Magnesium Oxide 400 MG TABLET PO (17:59)
[2022-05-20 20:20] VITALS: BP 145/78; PULSE 87; RESP 16; TEMP 36.5; O2SAT 96
[2022-05-20 20:23] LABS: Glucose, Whole Blood 158 mg/dL (60-115)
[2022-05-20] MEDS: Nitrofurantoin Monohyd/M-Cryst 100 MG CAPSULE PO (20:25)
[2022-05-20] MEDS: Mirtazapine 15 MG TABLET PO (20:25)
[2022-05-20] MEDS: traZODone HCL 50 MG TABLET PO (20:25)
[2022-05-20] MEDS: Apixaban 5 MG TABLET PO (20:25)
[2022-05-20] MEDS: Metoprolol Tartrate 50 MG TABLET PO (20:25)
[2022-05-20] MEDS: Loperamide HCl 2 MG CAPSULE 4 MG PO (20:26)
[2022-05-21 09:10] VITALS: BP 136/72; PULSE 67; RESP 18; TEMP 36.7; O2SAT 91
[2022-05-21] MEDS: Nitrofurantoin Monohyd/M-Cryst 100 MG CAPSULE PO ×2 (09:10→20:33)
[2022-05-21] MEDS: Magnesium Oxide 400 MG TABLET PO (09:10)
[2022-05-21] MEDS: Apixaban 5 MG TABLET PO ×2 (09:10→20:34)
[2022-05-21] MEDS: Metoprolol Tartrate 50 MG TABLET PO ×2 (09:10→20:34)
[2022-05-21] MEDS: Insulin Glargine,Hum.rec.anlog 100 UNIT/ML 10 ML VIAL 52 UNIT SUBCUT (09:11)
[2022-05-21] MEDS: Insulin Lispro 100 UNIT/ML 3 ML VIAL SUBCUT ×3 (09:16→20:36)
--- NOTE | 2022-05-21 12:34 | P.PNPSI_ITS ---
Subjective Subjective Date of Service: 05/21/22 Reason For Visit: SI, overdose Subjective Notes: Conditional Voluntary Interim History: Pt initially seen in the mornin, very upset when woken up at around 11am, pulling her hair, yelling. She later calmed down. Pt denies SI/HI. She describes difficult childhood that has led to resentment and feels stuck as she constantly thinks about how difficult was hre childhood due to difficult dynamics with mother and sister. We discussed some degree of mood lability that probably was behind her impulsively taking medications when overwhelmed and frustrated with daughter and not due to ongoing suicidal ideation. Review of Systems Cardiovascular: Denies chest pain, Denies diaphoresis, Denies irregular heart rhythm, Denies lightheadedness and Denies dyspnea Respiratory: Denies dyspnea Gastrointestinal: Reports diarrhea Musculoskeletal: Reports no additional musculoskeletal complaints Mental Status Exam Mental Status Exam Narrative: Appearance: casually groomed, fair hygiene in NAD Behavior:guarded psychomotor: no agitation or retardation noted Speech: clear, normal rate/rhythm/volume, spontaneous Thought process:linear Thought content:no signs of psychosis, wanting to go home soon Mood: frustrated Affect: congruent SI:adamantly denies HI:none VH/AH:none Delusions:none Insight/judgment:fair x 2. Memory/cog: alert, oriented x 3. grossly intact to conversational testing. Diagnostics Vital Signs (24Hr): Vital Signs - 24 hr 05/21/22 20:30 05/22/22 09:31 Temperature 97.7 F 97.6 F Pulse Rate 96 80 Respiratory Rate 18 Blood Pressure 137/70 184/79 H Pulse Oximetry 95 99 Oxygen Delivery Method Room Air Room Air Labs Results: 05/20/22 09:03 Labs: Laboratory Results - last 48 hr 05/20/22 05/20/22 05/20/22 09:03 12:32 20:20 Potassium 4.0 POC Glucose 178 H 158 H Calcium 8.4 05/21/22 05/21/22 05/21/22 12:45 18:14 20:27 Potassium POC Glucose 180 H 117 H 222 H Calcium 05/22/22 05/22/22 08:00 12:25 Potassium POC Glucose 149 H 275 H Calcium Medications Medications Current Medications Acetaminophen (Acetaminophen 325 Mg Tablet) 650 mg PO Q6H PRN PRN Reason: Headache/Pain Mild Scale (1-3) Al Hydroxide/Mg Hydroxide (Magnesium Hydrox/Alum Hydrox 30 Ml Oral.Susp) 30 ml PO Q6H PRN PRN Reason: Heartburn/Nausea Apixaban (Apixaban 5 Mg Tablet) 5 mg PO BID [facility] Last Admin: 05/22/22 09:37 Dose: 5 mg Gabapentin (Gabapentin 600 Mg Tablet) 600 mg PO BID [facility] Last Admin: 05/22/22 09:37 Dose: 600 mg Glucose (Glucose Gel 15 Gm Gel..Gram.) 15 gm PO Q15M PRN; Protocol PRN Reason: per Hypoglycemia Standing Ord. Hydroxyzine HCl (Hydroxyzine Hcl 25 Mg Tablet) 25 mg PO Q6H PRN PRN Reason: Anxiety Last Admin: 05/20/22 02:20 Dose: 25 mg Insulin Glargine (Insulin Glargine,Hum.Rec.Anlog 100 Unit/Ml 10 Ml Vial) 52 unit SUBCUT DAILY [facility] Last Admin: 05/22/22 09:35 Dose: 52 unit Insulin Human Lispro (Insulin Lispro 100 Unit/Ml 3 Ml Vial) 0 unit SUBCUT QIDACHS [facility]; Protocol Last Admin: 05/22/22 08:23 Dose: Not Given Insulin Human Lispro (Insulin Lispro 100 Unit/Ml 3 Ml Vial) 5 unit SUBCUT DAILY@1700 [facility] Last Admin: 05/21/22 18:20 Dose: Not Given Loperamide HCl (Loperamide Hcl 2 Mg Capsule) 2 mg PO Q4H PRN PRN Reason: diarrhea Loperamide HCl (Loperamide Hcl 2 Mg Capsule) 4 mg PO BEDTIME [facility] Last Admin: 05/21/22 20:33 Dose: 4 mg Lorazepam (Lorazepam 1 Mg Tablet) 1 mg PO BEDTIME [facility] Last Admin: 05/21/22 20:34 Dose: 1 mg Magnesium Hydroxide (Milk Of Magnesia 30 Ml Oral.Susp) 30 ml PO DAILY PRN PRN Reason: Constipation Magnesium Oxide (Magnesium Oxide 400 Mg Tablet) 400 mg PO DAILY [facility] Last Admin: 05/22/22 09:37 Dose: 400 mg Metoprolol Tartrate (Metoprolol Tartrate 50 Mg Tablet) 50 mg PO BID [facility]; Protocol Last Admin: 05/22/22 09:37 Dose: 50 mg Mirtazapine (Mirtazapine 30 Mg Tablet) 30 mg PO BEDTIME [facility] Last Admin: 05/21/22 20:33 Dose: 30 mg Nicotine (Nicotine 21 Mg Patch.Td24) 21 mg TRANSDERMA DAILY PRN PRN Reason: Nicotine Cravings Nicotine Polacrilex (Nicotine Polacrilex 2 Mg Gum) 2 mg BUCCAL Q1H PRN PRN Reason: Nicotine Cravings Nitrofurantoin Macrocrystals (Nitrofurantoin Monohyd/M-Cryst 100 Mg Capsule) 100 mg PO Q12H [facility] Last Admin: 05/22/22 09:37 Dose: 100 mg Promethazine HCl (Promethazine Hcl 25 Mg Tablet) 25 mg PO Q4H PRN PRN Reason: nausea/vomiting Trazodone HCl (Trazodone Hcl 50 Mg Tablet) 50 mg PO BEDTIME PRN PRN Reason: Insomnia Last Admin: 05/20/22 20:25 Dose: 50 mg Allergies Allergies Allergy/AdvReac Type Severity Reaction Status Date / Time No Known Allergies Allergy Verified 05/20/22 05:28 Assessment & Plan Assessment & Plan (1) MDD (major depressive disorder), recurrent episode, moderate: Status: Acute Code(s): F33.1 - Major depressive disorder, recurrent, moderate Plan Ms. Back is a 51 year-old woman with hx of MDD. No prior psych admission to inpt unit. She was brought via EMS after intentional OD on number of medications. Pt in ED sedated but arousable, admitted medically for observation of Qtc prolongations, which has now resolved. Pt describes OD as impulsive in setting of argument with daughter. Currently denies SI/HI. We discussed risks, benefits and alternative treatment options. She agrees to start remeron for sleep and mood. PLAN 1. Admit to M3, CV, 3 day, 15 minutes checks for safety. 2. Obtain collateral information from daughter 3. Aftercare planning 4. Start remeron 15mg po qhs. I spent minutes with the patient and/or on the patient floor today, greater than?50% of which was spent counseling/coordinating care. Reason for contiued inpatient stay Substantial Risk for: stable for discharge
[2022-05-21 12:54] LABS: Glucose, Whole Blood 180 mg/dL (60-115)
[2022-05-21] MEDS: Gabapentin 600 MG TABLET PO ×2 (14:20→20:34)
[2022-05-21 18:19] LABS: Glucose, Whole Blood 117 mg/dL (60-115)
[2022-05-21 20:30] VITALS: BP 137/70; PULSE 96; RESP 18; TEMP 36.5; O2SAT 95
[2022-05-21 20:31] LABS: Glucose, Whole Blood 222 mg/dL (60-115)
[2022-05-21] MEDS: Loperamide HCl 2 MG CAPSULE 4 MG PO (20:33)
[2022-05-21] MEDS: Mirtazapine 30 MG TABLET PO (20:33)
[2022-05-21] MEDS: LORazepam 1 MG TABLET PO (20:34)
[2022-05-22 08:04] LABS: Glucose, Whole Blood 149 mg/dL (60-115)
[2022-05-22 09:31] VITALS: BP 184/79; PULSE 80; TEMP 36.4; O2SAT 99
[2022-05-22] MEDS: Insulin Glargine,Hum.rec.anlog 100 UNIT/ML 10 ML VIAL 52 UNIT SUBCUT (09:35)
[2022-05-22] MEDS: Nitrofurantoin Monohyd/M-Cryst 100 MG CAPSULE PO (09:37)
[2022-05-22] MEDS: Magnesium Oxide 400 MG TABLET PO (09:37)
[2022-05-22] MEDS: Apixaban 5 MG TABLET PO (09:37)
[2022-05-22] MEDS: Metoprolol Tartrate 50 MG TABLET PO (09:37)
[2022-05-22] MEDS: Gabapentin 600 MG TABLET PO (09:37)
--- NOTE | 2022-05-22 12:25 | P.DS_ITS ---
DS: Providers Provider Date of Service: 05/22/22 Date of admission: 05/19/22 22:48 Primary care physician: Unknown Physician DS: Diagnosis Discharge Diagnosis (1) MDD (major depressive disorder), recurrent episode, moderate: Status: Acute DS: Medications Discharge Medications Home Medications: Home Medications Medication Instructions Recorded Confirmed apixaban 5 mg tablet (Eliquis) 5 mg PO BID 10/12/20 05/20/22 cetirizine 10 mg tablet (All Day 10 mg PO DAILY PRN Allergy Symptoms 10/12/20 05/20/22 Allergy (cetirizine)) insulin glargine 100 unit/mL (3 52 unit subcut DAILY 10/12/20 05/20/22 mL) subcutaneous pen (Lantus Solostar U-100 Insulin) dulaglutide 0.75 mg/0.5 mL 0.5 ml subcut QWEEK 05/15/22 05/20/22 subcutaneous pen injector (Trulicity) glipizide 5 mg tablet, extended 1 tab PO DAILY 05/15/22 05/20/22 release 24 hr hydroxyzine HCl 50 mg tablet 1 tab PO TID PRN Anxiety 05/15/22 05/20/22 insulin lispro 100 unit/mL 5 unit subcut DAILY@1700 05/15/22 05/20/22 subcutaneous solution metoprolol tartrate 50 mg tablet 1 tab PO BID 05/15/22 05/20/22 trazodone 100 mg tablet 2 tab PO QPM 05/15/22 05/20/22 Previous Rx's Medication Instructions Recorded gabapentin 600 mg tablet 600 mg PO BID #60 tabs 05/22/22 lorazepam 1 mg tablet 1 mg PO BEDTIME #15 tabs 05/22/22 magnesium oxide 400 mg (241.3 mg 400 mg PO DAILY #30 tabs 05/22/22 magnesium) tablet mirtazapine 30 mg tablet 30 mg PO BEDTIME #30 tabs 05/22/22 Mental Status Exam Mental Status Exam Narrative: Appearance: casually groomed, fair hygiene in NAD Behavior:guarded psychomotor: no agitation or retardation noted Speech: clear, normal rate/rhythm/volume, spontaneous Thought process:linear Thought content:no signs of psychosis, wanting to go home soon Mood: frustrated Affect: congruent SI:adamantly denies HI:none VH/AH:none Delusions:none Insight/judgment:fair x 2. Memory/cog: alert, oriented x 3. grossly intact to conversational testing. Data Data Completed and Pending Completed studies during hospitalization [Text1]: 05/20/22 05/20/22 05/20/22 09:03 09:03 12:32 Potassium 4.0 POC Glucose 178 H Calcium 8.4 Magnesium 1.3 L* Triglycerides 248 Cholesterol 127 LDL Cholesterol, Calc 54 HDL Cholesterol 24 Vitamin B12 349 Folate > 20.0 TSH 2.19 Free T4 1.44 05/20/22 05/21/22 05/21/22 20:20 12:45 18:14 Potassium POC Glucose 158 H 180 H 117 H Calcium Magnesium Triglycerides Cholesterol LDL Cholesterol, Calc HDL Cholesterol Vitamin B12 Folate TSH Free T4 05/21/22 05/22/22 20:27 08:00 Potassium POC Glucose 222 H 149 H Calcium Magnesium Triglycerides Cholesterol LDL Cholesterol, Calc HDL Cholesterol Vitamin B12 Folate TSH Free T4 DS: Summary Hospital Course Hospital Course: HPI: Subjective Notes: Nieves Warning, Conditional Voluntary and 3 Day Narrative: Ms. Back is a 51 year-old woman with hx of MDD. She was brought to [facility] via [place] after police was called after pt had told daughter that she planned OD o nmedications.In the ED, pt sedated but arousable. She was admitted medically for further observation as she presented with prolonged Qtc. Per attending Dr. Fajardo:? 51-year-old female with past medical history of GERD, HTN, osteoarthritis, diabetes, diabetic neuropathy, depression, HLD, history of SVT, presents to the hospital after ingesting various pills after of having a fight with her daughter.? Patient reports that she did not want to hurt herself and she took them after having a fight with her daughter.? She took trazodone, hydrocortisone, and melatonin.? She reports that she took more than 10 pills.? At this time patient denies any suicidal ideation.? She denies any headache or change in vision, no chest pain, shortness of breath, no abdominal pain nausea or vomiting, no diarrhea constipation, no urinary symptoms and no lower extremity edema. On arrival to the ED patient hemodynamically stable with hypotension with blood pressure in the 80s over 30s, patient resuscitated with IV fluids with normalization of her blood pressure Labs are significant for WBC count of 3.8, pH of 7.37, bicarb of 21, osmolality of 304, lactic acid of 3.0, magnesium of 1.6, AST of 92, ALT of 71, UA positive for leukocyte Estrace and WBC, UDS positive for fentanyl, amphetamines, estimate of in an salicylate acid negative HOSPITAL COURSE Ms. Back was admitted on a CV and placed on 15 minutes checks for safety. On the unit, pt presented as dysphoric, some degree of emotional dysregulation. She described OD as impulsive and having observed some degree of dysregulation and poor frustration tolerance is evident that most likely OD was in setting of this mood dysregulation. She adamantly denies suicidal or homicidal ideation. She presented as remorseful about OD and consequences of this. She noted that she has been more overwhelmed than what she had realized. We discussed risks, benefits and alternative treatment options. She agreed to start remeron for mood. She may benefit from mood stabilizer if episodes of lashing out briefly continue. She was positive for amphetamines which can i ncrease irritability but she denies recent use. She denied SI/HI. No signs of aggression towards self or others. No signs of VH/AH. No delusions. She signed a 3 day notice which is up today and given that there is not imminent safety concerns at this time she will be discharged. Collateral information gathered from her daugther who denies any safety concerns at time of discharge. Status at Discharge Cognitive/behavioral status at discharge: Pt with some degree of dysregulation- easily frustrated but brief episodes with some insight and able to eventually self regulate. No SI/HI. No VH/AH. No delusions. No signs of aggression towards self or others. Functional status at discharge: independent ambulation Overall status at discharge: patient is progressing back to baseline Time Spent with Patient Time attestation: Total time spent providing and/or coordinating discharge services: Discharge Plan Discharge Patient Disposition: Home Health Service Discharge Diagnosis: MDD, recurrent, moderate Referrals: Therapy & Psychiatry [Other] (Your referral has been submitted. Intake will call you to complete the referral and schedule appointments. Please call if you do not hear from them within a few days. When scheduling your appointments, you can request services through the [place] office) Luis A Pruitt MD [Physician] - 1 Week (Office will follow up w/ patient to schedule an appt. ) Discharge Medications: New gabapentin 600 mg Tablet 600 mg PO BID Qty: 60 0RF magnesium oxide 400 mg (241.3 mg magnesium) Tablet 400 mg PO DAILY Qty: 30 0RF mirtazapine 30 mg Tablet 30 mg PO BEDTIME Qty: 30 0RF lorazepam 1 mg Tablet 1 mg PO BEDTIME Qty: 15 0RF Continued glipizide 5 mg tablet extended release 24hr 1 tab PO DAILY hydroxyzine HCl 50 mg tablet 1 tab PO TID PRN (Reason: Anxiety) trazodone 100 mg tablet 2 tab PO QPM metoprolol tartrate 50 mg tablet 1 tab PO BID insulin lispro 100 unit/mL solution 5 unit subcut DAILY@1700 Trulicity 0.75 mg/0.5 mL pen injector 0.5 ml subcut QWEEK Rx Instructions: THURSDAY cetirizine [All Day Allergy (cetirizine)] 10 mg tablet 10 mg PO DAILY PRN (Reason: Allergy Symptoms) Eliquis 5 mg tablet 5 mg PO BID Lantus Solostar U-100 Insulin 100 unit/mL (3 mL) insulin pen 52 unit subcut DAILY Discontinued gabapentin 300 mg capsule 2 cap PO TID nitrofurantoin macrocrystal 100 mg capsule 100 mg PO BID Qty: 10 0RF Rx Instructions: must administer with a meal/food Discharge Orders: Discharge Order (Routine); Ordered 05/22/22 Ordered By: Natasha Orellana Diet: Regular diet Activity on Discharge: As tolerated Stand Alone Forms: Patient Portal Discharge page, Community Support Care Plan Goals: 1. Maintain mood 2. No aggression towards self or others 3. No SI/HI. Health Concerns: Follow up with PCP Plan of Treatment: 1. Take medications as prescribed. 2. Go to nearest ED or call 911 in event of emergency Assessment: Pt with brighter affect, less labile. No SI/HI. no signs of psychosis or delusional content. No signs of aggression towards self or others.
[2022-05-22 12:32] LABS: Glucose, Whole Blood 275 mg/dL (60-115)
[2022-05-22] MEDS: Insulin Lispro 100 UNIT/ML 3 ML VIAL SUBCUT (13:10)
== END 2022-05-22 13:45 | disposition home health service (06) | DRG 751 ==
PROVIDERS: Registered Nurse; Admitting Provider Psychiatry & Neurology Psychiatry; Visit Provider Psychiatry & Neurology Psychiatry
DX: F33.1 Major depressive disorder, recurrent, moderate (principal); R45.851 Suicidal ideations; E11.40 Type 2 diabetes mellitus with diabetic neuropathy, unspecified; E66.01 Morbid (severe) obesity due to excess calories; I10 Essential (primary) hypertension; Z79.4 Long term (current) use of insulin; Z79.84 Long term (current) use of oral hypoglycemic drugs; Z79.01 Long term (current) use of anticoagulants; Z79.899 Other long term (current) drug therapy
CPT/HCPCS: 36415; 80061; 82310; 82607; 82746; 82947; 83735; 84132; 84439; 84443; 93005